=== PATIENT | male | born 1985 | race Caucasian/White ===

== ENCOUNTER 2019-02-13 21:02 | Emergency (ER) | payer MEDICAID ==
[~2019-02-13] VITALS: Ht 157.5 cm; Wt 52.0 kg
--- NOTE | 2019-02-13 21:24 | NUR ---
OJ GIVEN IN TRIAGE
--- NOTE | 2019-02-13 21:49 | NUR ---
CALLED FOR ROOM, NO ANSWER CURRENTLY, NEXT PT ROOMED
[2019-02-13 22:20] VITALS: BP 110/74
--- NOTE | 2019-02-13 22:21 | NUR ---
FIRST CONTACT WITH PT. PT BIB [facility] WITH REPORTED LO BS DEPRESSED AND NEEDS DETOX. PT'S AOX4. RESPS EVEN AND UNLABORED. PT C/O FLANK PAIN. BP/SPO2 MONITORS IN PLACE. CALL LIGHT WITHIN REACH.
--- NOTE | 2019-02-13 22:29 | NUR ---
BS 260 AT THIS TIME.
[2019-02-13 22:44] LABS: ALANINE AMINOTRANSFERASE 38 U/L (12-78); ALBUMIN 3.4 g/dL (3.4-5.0); ANION GAP 8 mmol/L (5-15); CALCIUM 8.9 mg/dL (8.5-10.1); CHLORIDE 107 mmol/L (98-107); CREATININE 0.97 mg/dL (0.7-1.3)
[2019-02-13 22:46] LABS: BASOPHILS # (AUTO) 0.05 x10^3/uL (0-0.1); BASOPHILS % (AUTO) 1 % (0-1); EOSINOPHILS # (AUTO) 0.13 x10^3/uL (0-0.4); EOSINOPHILS % (AUTO) 2 % (1-7); LYMPHOCYTES # (AUTO) 2.18 x10^3/uL (1-3.4); LYMPHOCYTES % (AUTO) 37 % (22-44); MD NO; MEAN CORPUSCULAR HGB CONC 33.3 g/dL (33.2-36.2); MEAN CORPUSCULAR VOLUME 92.9 fL (81-97); MEAN PLATELET VOLUME 8.9 fL (7.4-10.4); MONOCYTES # (AUTO) 0.47 x10^3/uL (0.2-0.8); MONOCYTES % (AUTO) 8 % (2-9); NEUTROPHILS # (AUTO) 3.08 x10^3/uL (1.8-6.8); NEUTROPHILS % (AUTO) 52 % (42-75); PLATELET COUNT 280 x10^3/uL (130-400); RED BLOOD COUNT 4.66 x10^6/uL (4.38-5.82)
[2019-02-13 22:47] LABS: ALKALINE PHOSPHATASE 66 U/L (45-117); BILIRUBIN,TOTAL 0.5 mg/dL (0.2-1.0); TOTAL PROTEIN 6.7 g/dL (6.4-8.2)
[2019-02-13 23:13] LABS: MICROSCOPIC AUTO
[2019-02-13 23:15] LABS: CULTURE INDICATED? NO
--- NOTE | 2019-02-14 00:10 | NUR ---
Patient given discharge instructions and they have confirmed that they understand the instructions. Patient ambulatory with steady gait. taxi voucher [place] at [place].
== END 2019-02-14 00:11 | disposition home or self-care (01) ==
LOC: ED 02-14 00:05
DX: E11.649 Type 2 diabetes mellitus with hypoglycemia without coma (principal); R30.0 Dysuria; F17.210 Nicotine dependence, cigarettes, uncomplicated; F15.929 Other stimulant use, unspecified with intoxication, unspecified
CPT/HCPCS: 36415; 80053; 81001; 82962; 85025; 99283

== ENCOUNTER 2020-01-21 07:43 | Emergency (ER) | payer MEDICAID ==
[~2020-01-21] VITALS: Ht 157.5 cm; Wt 52.6 kg
[2020-01-21 08:52] LABS: BASOPHILS # (AUTO) 0.06 x10^3/uL (0-0.1); BASOPHILS % (AUTO) 1 % (0-1); EOSINOPHILS # (AUTO) 0.01 x10^3/uL (0-0.4); EOSINOPHILS % (AUTO) 0 % (1-7); LYMPHOCYTES # (AUTO) 0.98 x10^3/uL (1-3.4); LYMPHOCYTES % (AUTO) 12 % (22-44); MD NO; MEAN CORPUSCULAR HEMOGLOBIN 30.6 pg (27.5-34.5); MEAN CORPUSCULAR HGB CONC 33.2 g/dL (33.2-36.2); MEAN PLATELET VOLUME 9.2 fL (7.4-10.4); MONOCYTES # (AUTO) 0.36 x10^3/uL (0.2-0.8); MONOCYTES % (AUTO) 5 % (2-9); NEUTROPHILS # (AUTO) 6.59 x10^3/uL (1.8-6.8); NEUTROPHILS % (AUTO) 82 % (42-75); PLATELET COUNT 250 x10^3/uL (130-400); RED BLOOD COUNT 5.41 x10^6/uL (4.38-5.82); RED CELL DISTRIBUTION WIDTH 13.3 % (9.4-14.8)
[2020-01-21 09:03] LABS: ALBUMIN 3.8 g/dL (3.4-5.0); ANION GAP 13 mmol/L (5-15); CALCIUM 9.7 mg/dL (8.5-10.1); CHLORIDE 101 mmol/L (98-107)
[2020-01-21 09:06] LABS: ALANINE AMINOTRANSFERASE 27 U/L (12-78); ALKALINE PHOSPHATASE 87 U/L (45-117); BILIRUBIN,TOTAL 0.5 mg/dL (0.2-1.0); CREATININE 1.67 mg/dL (0.7-1.3); TOTAL PROTEIN 7.8 g/dL (6.4-8.2)
--- NOTE | 2020-01-21 09:43 | NUR ---
MEDICAL POLICY SPECIALIST: PT TO ROOM FROM LOBBY
[2020-01-21] MEDS ORDERED: SODIUM CHLORIDE FLUSH 10ML SYR IVF ONE (10:30)
[2020-01-21] MEDS ORDERED: SODIUM CHLORIDE 0.9% 1,000ML IVBOLUS ONE (10:30)
--- NOTE | 2020-01-21 10:31 | NUR ---
PT RESTING IN BED, IV STARTED PER ORDERS. PT PLACED ON MONITORS, VSS. UA COLLECTED, SENT TO LAB. CONT TO MONITOR.
[2020-01-21 11:04] LABS: MICROSCOPIC AUTO
--- NOTE | 2020-01-21 11:44 | NUR ---
PT D/C'D PER ERMD ORDERS. STEADY GAIT UPON D/C.
[2020-01-21 11:45] VITALS: BP 141/67
== END 2020-01-21 11:46 | disposition home or self-care (01) ==
LOC: ED 09:58
DX: K59.00 Constipation, unspecified (principal); E10.65 Type 1 diabetes mellitus with hyperglycemia; R10.32 Left lower quadrant pain; R50.9 Fever, unspecified; R19.7 Diarrhea, unspecified
CPT/HCPCS: 36415; 74021; 76700; 80053; 81001; 83690; 85025; 96360; 99285; J7030

== ENCOUNTER 2020-02-03 06:31 | Inpatient (IN) | payer MEDICAID ==
[~2020-02-03] VITALS: Ht 157.5 cm; Wt 53.1 kg
--- NOTE | 2020-02-03 06:35 | NUR ---
CALLED FOR TRIAGE. PT NOT IN LOBBY
[2020-02-03] MEDS ORDERED: SODIUM CHLORIDE 0.9% 1,000ML IVBOLUS ONE ×3 (07:00→11:00)
--- NOTE | 2020-02-03 07:10 | NUR ---
PT CAME IN CO OF HIGH BLOOD SUGAR, SORE THROAT, AND "FEELING NOT RIGHT". PT REPORTS THAT STREP THROAT HAS BEEN GOING AROUND HIS HOUSE. LABS DRAWN. IV FLUIDS INFUSING. 2 BLANKETS PROVIDED.
[2020-02-03 07:11] LABS: BASOPHILS # (AUTO) 0.05 x10^3/uL (0-0.1); BASOPHILS % (AUTO) 1 % (0-1); EOSINOPHILS # (AUTO) 0.11 x10^3/uL (0-0.4); EOSINOPHILS % (AUTO) 2 % (1-7); LYMPHOCYTES # (AUTO) 2.05 x10^3/uL (1-3.4); LYMPHOCYTES % (AUTO) 28 % (22-44); MD NO; MEAN CORPUSCULAR HEMOGLOBIN 30.3 pg (27.5-34.5); MEAN CORPUSCULAR HGB CONC 32.9 g/dL (33.2-36.2); MEAN CORPUSCULAR VOLUME 92.1 fL (81-97); MONOCYTES # (AUTO) 0.43 x10^3/uL (0.2-0.8); MONOCYTES % (AUTO) 6 % (2-9); NEUTROPHILS # (AUTO) 4.65 x10^3/uL (1.8-6.8); NEUTROPHILS % (AUTO) 64 % (42-75); PLATELET COUNT 259 x10^3/uL (130-400); RED BLOOD COUNT 5.06 x10^6/uL (4.38-5.82); RED CELL DISTRIBUTION WIDTH 13.4 % (9.4-14.8)
[2020-02-03 07:16] LABS: PH, VENOUS 7.293 pH (7.320-7.420)
[2020-02-03 07:26] LABS: ALANINE AMINOTRANSFERASE 19 U/L (12-78); ALBUMIN 3.5 g/dL (3.4-5.0); ANION GAP 18 mmol/L (5-15); CHLORIDE 98 mmol/L (98-107); CREATININE 1.35 mg/dL (0.7-1.3)
[2020-02-03 07:28] LABS: ALKALINE PHOSPHATASE 76 U/L (45-117); BILIRUBIN,TOTAL 0.6 mg/dL (0.2-1.0); TOTAL PROTEIN 7.5 g/dL (6.4-8.2)
[2020-02-03 08:01] LABS: ACETONE, SERUM Large (80mg/dL) (Negative)
[2020-02-03] MEDS ORDERED: INSULIN SINGLE DOSE, ER ONE (08:20)
[2020-02-03] MEDS ORDERED: INSULIN REGULAR 100 UNITS/ML, 3ML VIAL IVPush ONE (08:30)
--- NOTE | 2020-02-03 08:33 | NUR ---
PT TO BE ADMITTED. EDUCATED ON PLAN OF CARE. CALLED HIS EMPLOYER AND [employer] FOR PER HIS WISHES Addendum: 02/03/20 at 0835 by [facility] HE LIVES AND WORKS WITH THE [facility] [employer]. [phone]
[2020-02-03] MEDS ORDERED: LANTUS (08:36)
[2020-02-03 09:03] LABS: MICROSCOPIC NOT IND
--- NOTE | 2020-02-03 09:40 | NUR ---
PT RESTING IN [facility]. VSS. NAD
[2020-02-03 09:53] LABS: CALCIUM 8.1 mg/dL (8.5-10.1); CREATININE 1.32 mg/dL (0.7-1.3)
[2020-02-03 10:13] LABS: ANION GAP 15 mmol/L (5-15); CHLORIDE 108 mmol/L (98-107)
[2020-02-03] MEDS: D5%-0.45NACL+KCL 20MEQ 1,000 ML IV SCH ×2 (10:38→16:06)
[2020-02-03] MEDS ORDERED: REGULAR INSULIN 100 UNITS in SODIUM CHLORIDE 0.9% 99 ML IV PRN (10:38)
--- NOTE | 2020-02-03 10:39 | NUR ---
THROUGHPUT: PT DENIED TRANSFER BY [facility] ([facility]) & [facility] (SUNDAY), [facility] FORM FAXED & PLACED IN FOLDER WITH FAX CONFIRMATION, EMAIL SENT TO [facility].
[2020-02-03] MEDS ORDERED: GLUCAGON 1 MG IM PRN (11:00)
[2020-02-03] MEDS ORDERED: DEXTROSE 50%, 50ML SYRINGE IVPush PRN (11:00)
[2020-02-03] MEDS ORDERED: DEXTROSE 4 GM TAB.CHEW PO PRN (11:00)
[2020-02-03] MEDS ORDERED: ONDANSETRON 2MG/ML, 2ML IVPush PRN (11:00)
[2020-02-03] MEDS: SODIUM CHLORIDE 0.9% 1,000 ML IV SCH ×3 (12:30→20:38)
[2020-02-03] MEDS: ENOXAPARIN 40 MG/0.4 ML SQ SCH (12:32)
[2020-02-03 12:33] VITALS: BP 100/70
[2020-02-03] MEDS ORDERED: ARIP20TA10 PO (13:13)
[2020-02-03] MEDS ORDERED: DIVA-61 PO (13:13)
[2020-02-03] MEDS ORDERED: OMEP-110 PO (13:13)
[2020-02-03] MEDS ORDERED: INSU100I11 SQ-INSULIN (13:13)
[2020-02-03] MEDS ORDERED: EMPA1TAB3 PO (13:13)
[2020-02-03] MEDS ORDERED: INSU100I13 SQ-INSULIN (13:13)
[2020-02-03] MEDS ORDERED: CALCIUM CARBONATE 500 MG TAB.CHEW ONE (14:10)
[2020-02-03] MEDS: CALCIUM CARBONATE 500 MG TAB.CHEW PO SCH ×2 (14:13→20:09)
[2020-02-03 14:16] LABS: ANION GAP 17 mmol/L (5-15); CALCIUM 8.1 mg/dL (8.5-10.1); CHLORIDE 107 mmol/L (98-107); CREATININE 1.09 mg/dL (0.7-1.3)
[2020-02-03 15:40] LABS: MICROSCOPIC NOT IND
[2020-02-03 18:19] LABS: ANION GAP 8 mmol/L (5-15); CALCIUM 8.1 mg/dL (8.5-10.1); CHLORIDE 111 mmol/L (98-107); CREATININE 1.06 mg/dL (0.7-1.3)
[2020-02-03] MEDS: ARIPIPRAZOLE 10 MG TABLET PO SCH (20:10)
[2020-02-03] MEDS: DIVALPROEX 500 MG TABLET.DR PO SCH (20:10)
[2020-02-03] MEDS: SODIUM CHLORIDE FLUSH 10ML SYR IVF SCH (21:00)
[2020-02-03 22:37] LABS: ANION GAP 10 mmol/L (5-15); CALCIUM 7.8 mg/dL (8.5-10.1); CHLORIDE 111 mmol/L (98-107); CREATININE 0.96 mg/dL (0.7-1.3)
[2020-02-04] MEDS: D5%-0.45NACL+KCL 20MEQ 1,000 ML IV SCH ×3 (00:28→18:38)
[2020-02-04] MEDS: SODIUM CHLORIDE 0.9% 1,000 ML IV SCH ×4 (01:38→22:03)
[2020-02-04 02:38] LABS: ALBUMIN 2.5 g/dL (3.4-5.0); ANION GAP 6 mmol/L (5-15); CALCIUM 7.4 mg/dL (8.5-10.1); CHLORIDE 113 mmol/L (98-107)
[2020-02-04 02:41] LABS: BASOPHILS # (AUTO) 0.04 x10^3/uL (0-0.1); BASOPHILS % (AUTO) 1 % (0-1); EOSINOPHILS # (AUTO) 0.12 x10^3/uL (0-0.4); EOSINOPHILS % (AUTO) 2 % (1-7); LYMPHOCYTES # (AUTO) 2.56 x10^3/uL (1-3.4); LYMPHOCYTES % (AUTO) 44 % (22-44); MD NO; MEAN CORPUSCULAR HEMOGLOBIN 30.8 pg (27.5-34.5); MEAN CORPUSCULAR HGB CONC 33.9 g/dL (33.2-36.2); MEAN CORPUSCULAR VOLUME 90.7 fL (81-97); MEAN PLATELET VOLUME 9.4 fL (7.4-10.4); MONOCYTES # (AUTO) 0.45 x10^3/uL (0.2-0.8); MONOCYTES % (AUTO) 8 % (2-9); NEUTROPHILS # (AUTO) 2.63 x10^3/uL (1.8-6.8); NEUTROPHILS % (AUTO) 45 % (42-75); PLATELET COUNT 240 x10^3/uL (130-400); RED BLOOD COUNT 4.33 x10^6/uL (4.38-5.82); RED CELL DISTRIBUTION WIDTH 13.4 % (9.4-14.8)
[2020-02-04 02:47] LABS: ALANINE AMINOTRANSFERASE 14 U/L (12-78); ALKALINE PHOSPHATASE 56 U/L (45-117); BILIRUBIN,TOTAL 0.4 mg/dL (0.2-1.0); CHOL/HDL RATIO 3.2; CHOLESTEROL, TOTAL 176 mg/dL (140-239); CREATININE 0.92 mg/dL (0.7-1.3); HDL CHOL % 31 % (26-37); HDL CHOLESTEROL (DIRECT) 55 mg/dL (40-60); LDL CHOLESTEROL,CALCULATED 103 mg/dL (54-169); LDL/HDL RATIO 1.9 (0.5-3.0); TOTAL PROTEIN 5.6 g/dL (6.4-8.2); TRIGLYCERIDES 89 mg/dL (50-200); VLDL CHOLESTEROL 18 mg/dL (0-25)
[2020-02-04 04:00] VITALS: BP 104/61
[2020-02-04] MEDS ORDERED: MAGNESIUM SULFATE/D5W 100 ML IV ONE (04:30)
[2020-02-04] MEDS: CALCIUM CARBONATE 500 MG TAB.CHEW PO SCH ×4 (05:15→20:53)
[2020-02-04] MEDS ORDERED: MAGNESIUM SULFATE PMX 2GM/50ML 50 ML IV ONE (07:00)
[2020-02-04] MEDS: SODIUM CHLORIDE FLUSH 10ML SYR IVF SCH ×3 (07:48→20:55)
[2020-02-04] MEDS: OMEPRAZOLE 20 MG CAPSULE.DR PO SCH (07:53)
[2020-02-04 08:55] LABS: ANION GAP 4 mmol/L (5-15); CALCIUM 8.1 mg/dL (8.5-10.1); CHLORIDE 112 mmol/L (98-107); CREATININE 0.91 mg/dL (0.7-1.3)
[2020-02-04] MEDS ORDERED: INSULIN GLARGINE 100 UNITS/ML, PEN ONE (10:55)
[2020-02-04] MEDS: INSULIN LISPRO 100 UNITS/ML, PEN SQ-INSULIN SCH ×3 (11:00→20:54)
[2020-02-04] MEDS ORDERED: INSULIN GLARGINE 100 UNITS/ML, PEN SQ-INSULIN ONE (11:00)
[2020-02-04] MEDS ORDERED: DEXTROSE 50%, 50ML SYRINGE IVPush PRN (11:00)
[2020-02-04] MEDS ORDERED: GLUCAGON 1 MG IM PRN (11:00)
[2020-02-04] MEDS ORDERED: DEXTROSE 4 GM TAB.CHEW PO PRN (11:00)
[2020-02-04] MEDS: POTASSIUM ACID PHOSPHATE 500 MG TABLET.SOL PO SCH ×3 (11:02→22:03)
[2020-02-04] MEDS ORDERED: POTASSIUM ACID PHOSPHATE 500 MG TABLET.SOL ONE (11:02)
[2020-02-04] MEDS: ENOXAPARIN 40 MG/0.4 ML SQ SCH (11:02)
[2020-02-04 19:06] VITALS: BP 106/74
[2020-02-04] MEDS: INSULIN GLARGINE 100 UNITS/ML, PEN SQ-INSULIN SCH (20:54)
[2020-02-04] MEDS: DIVALPROEX 500 MG TABLET.DR PO SCH (20:54)
[2020-02-04] MEDS: ARIPIPRAZOLE 10 MG TABLET PO SCH (20:54)
[2020-02-05 01:19] VITALS: BP 117/70
[2020-02-05] MEDS: D5%-0.45NACL+KCL 20MEQ 1,000 ML IV SCH (02:38)
[2020-02-05 05:23] LABS: BASOPHILS # (AUTO) 0.03 x10^3/uL (0-0.1); BASOPHILS % (AUTO) 1 % (0-1); EOSINOPHILS # (AUTO) 0.08 x10^3/uL (0-0.4); EOSINOPHILS % (AUTO) 2 % (1-7); LYMPHOCYTES # (AUTO) 1.38 x10^3/uL (1-3.4); LYMPHOCYTES % (AUTO) 26 % (22-44); MD NO; MEAN CORPUSCULAR HEMOGLOBIN 30.9 pg (27.5-34.5); MEAN CORPUSCULAR HGB CONC 33.7 g/dL (33.2-36.2); MEAN CORPUSCULAR VOLUME 91.7 fL (81-97); MEAN PLATELET VOLUME 9.8 fL (7.4-10.4); MONOCYTES # (AUTO) 0.51 x10^3/uL (0.2-0.8); MONOCYTES % (AUTO) 10 % (2-9); NEUTROPHILS # (AUTO) 3.25 x10^3/uL (1.8-6.8); NEUTROPHILS % (AUTO) 62 % (42-75); PLATELET COUNT 221 x10^3/uL (130-400); RED BLOOD COUNT 4.49 x10^6/uL (4.38-5.82); RED CELL DISTRIBUTION WIDTH 13.6 % (9.4-14.8)
[2020-02-05] MEDS: CALCIUM CARBONATE 500 MG TAB.CHEW PO SCH ×4 (05:28→21:07)
[2020-02-05] MEDS: POTASSIUM ACID PHOSPHATE 500 MG TABLET.SOL PO SCH (05:28)
[2020-02-05 05:29] LABS: ALBUMIN 2.5 g/dL (3.4-5.0); ANION GAP 6 mmol/L (5-15); CHLORIDE 114 mmol/L (98-107)
[2020-02-05 05:34] LABS: ALANINE AMINOTRANSFERASE 18 U/L (12-78); ALKALINE PHOSPHATASE 59 U/L (45-117); BILIRUBIN,TOTAL 0.4 mg/dL (0.2-1.0); CREATININE 0.61 mg/dL (0.7-1.3); TOTAL PROTEIN 5.6 g/dL (6.4-8.2)
[2020-02-05 06:40] VITALS: BP 110/70
[2020-02-05] MEDS: INSULIN LISPRO 100 UNITS/ML, PEN SQ-INSULIN SCH ×4 (07:00→21:51)
[2020-02-05] MEDS: MAGNESIUM OXIDE 400 MG TABLET PO SCH (08:39)
[2020-02-05] MEDS: OMEPRAZOLE 20 MG CAPSULE.DR PO SCH (08:39)
[2020-02-05] MEDS: INSULIN GLARGINE 100 UNITS/ML, PEN SQ-INSULIN SCH ×2 (08:40→21:51)
[2020-02-05] MEDS: SODIUM CHLORIDE FLUSH 10ML SYR IVF SCH ×3 (08:42→21:08)
[2020-02-05] MEDS: ENOXAPARIN 40 MG/0.4 ML SQ SCH (11:17)
[2020-02-05 12:20] VITALS: BP 107/76
[2020-02-05] MEDS: ACETAMINOPHEN 325 MG TABLET PO PRN (12:39)
[2020-02-05 19:30] VITALS: BP 117/77
[2020-02-05] MEDS: ARIPIPRAZOLE 10 MG TABLET PO SCH (21:07)
[2020-02-05] MEDS: DIVALPROEX 500 MG TABLET.DR PO SCH (21:07)
[2020-02-06 04:17] VITALS: BP 100/61
[2020-02-06] MEDS: ACETAMINOPHEN 325 MG TABLET PO PRN ×2 (04:29→17:23)
[2020-02-06 06:56] VITALS: BP 129/91
[2020-02-06] MEDS: OMEPRAZOLE 20 MG CAPSULE.DR PO SCH (08:22)
[2020-02-06] MEDS: MAGNESIUM OXIDE 400 MG TABLET PO SCH (08:22)
[2020-02-06] MEDS: CALCIUM CARBONATE 500 MG TAB.CHEW PO SCH ×4 (08:23→20:01)
[2020-02-06] MEDS: INSULIN LISPRO 100 UNITS/ML, PEN SQ-INSULIN SCH ×4 (08:23→20:37)
[2020-02-06] MEDS: INSULIN GLARGINE 100 UNITS/ML, PEN SQ-INSULIN SCH ×3 (08:24→23:03)
[2020-02-06] MEDS: SODIUM CHLORIDE FLUSH 10ML SYR IVF SCH ×2 (08:25→21:00)
[2020-02-06] MEDS ORDERED: INSULIN LISPRO 100 UNITS/ML, PEN SQ-INSULIN SCH ×2 (12:00→17:00)
[2020-02-06] MEDS: ENOXAPARIN 40 MG/0.4 ML SQ SCH (12:05)
[2020-02-06 14:21] VITALS: BP 109/73
[2020-02-06 19:57] VITALS: BP 128/89
[2020-02-06] MEDS: ARIPIPRAZOLE 10 MG TABLET PO SCH (20:00)
[2020-02-06] MEDS: DIVALPROEX 500 MG TABLET.DR PO SCH (20:00)
[2020-02-07 02:00] VITALS: BP 110/75
[2020-02-07] MEDS: SODIUM CHLORIDE FLUSH 10ML SYR IVF SCH ×2 (07:04→21:18)
[2020-02-07] MEDS: INSULIN LISPRO 100 UNITS/ML, PEN SQ-INSULIN SCH ×5 (07:07→21:17)
[2020-02-07 07:40] VITALS: BP 107/72
[2020-02-07] MEDS: CALCIUM CARBONATE 500 MG TAB.CHEW PO SCH ×3 (08:00→14:25)
[2020-02-07] MEDS ORDERED: INSULIN LISPRO 100 UNITS/ML, PEN SQ-INSULIN SCH ×3 (08:00→17:00)
[2020-02-07] MEDS: OMEPRAZOLE 20 MG CAPSULE.DR PO SCH (08:05)
[2020-02-07] MEDS: MAGNESIUM OXIDE 400 MG TABLET PO SCH (08:05)
[2020-02-07] MEDS: INSULIN GLARGINE 100 UNITS/ML, PEN SQ-INSULIN SCH ×2 (08:06→21:17)
[2020-02-07 08:51] LABS: ANION GAP 10 mmol/L (5-15); CALCIUM 9.4 mg/dL (8.5-10.1); CHLORIDE 100 mmol/L (98-107); CREATININE 1.23 mg/dL (0.7-1.3)
[2020-02-07] MEDS: LINAGLIPTIN PO SCH (09:00)
[2020-02-07] MEDS: EMPAGLIFLOZIN PO SCH (09:00)
[2020-02-07] MEDS: ENOXAPARIN 40 MG/0.4 ML SQ SCH (11:18)
[2020-02-07] MEDS ORDERED: CALCIUM CARBONATE 500 MG TAB.CHEW PO PRN (14:30)
[2020-02-07 15:32] VITALS: BP 104/70
[2020-02-07 19:42] VITALS: BP 110/76
[2020-02-07] MEDS: DIVALPROEX 500 MG TABLET.DR PO SCH (21:16)
[2020-02-07] MEDS: ARIPIPRAZOLE 10 MG TABLET PO SCH (21:16)
[2020-02-08 02:01] VITALS: BP 114/78
[2020-02-08 02:26] VITALS: BP 114/76
[2020-02-08] MEDS: INSULIN LISPRO 100 UNITS/ML, PEN SQ-INSULIN SCH ×2 (03:08→09:39)
[2020-02-08 06:37] VITALS: BP 107/73
[2020-02-08] MEDS ORDERED: INSULIN LISPRO 100 UNITS/ML, PEN SQ-INSULIN SCH (08:00)
[2020-02-08] MEDS: EMPAGLIFLOZIN PO SCH (09:00)
[2020-02-08] MEDS: LINAGLIPTIN PO SCH (09:00)
[2020-02-08] MEDS: SODIUM CHLORIDE FLUSH 10ML SYR IVF SCH (09:38)
[2020-02-08] MEDS: OMEPRAZOLE 20 MG CAPSULE.DR PO SCH (09:38)
[2020-02-08] MEDS: MAGNESIUM OXIDE 400 MG TABLET PO SCH (09:38)
[2020-02-08] MEDS: INSULIN GLARGINE 100 UNITS/ML, PEN SQ-INSULIN SCH (09:39)
[2020-02-08] MEDS ORDERED: INSU100I13 SQ-INSULIN (10:10)
[2020-02-08] MEDS: ENOXAPARIN 40 MG/0.4 ML SQ SCH (11:00)
== END 2020-02-08 11:11 | disposition home or self-care (01) | DRG 637 ==
LOC: ED 07:19 → EDIP 10:32 → CCU 12:09 → 3N 02-04 13:41 → DCLOUNGE 02-08 11:09
PROVIDERS: ADMIT Internal Medicine; ATTEND Hospitalist
DX: E10.10 Type 1 diabetes mellitus with ketoacidosis without coma (principal); E43 Unspecified severe protein-calorie malnutrition; F19.20 Other psychoactive substance dependence, uncomplicated; R65.10 Systemic inflammatory response syndrome (SIRS) of non-infectious origin without acute organ dysfunction; E86.0 Dehydration; E83.42 Hypomagnesemia; F17.210 Nicotine dependence, cigarettes, uncomplicated; F32.9 Major depressive disorder, single episode, unspecified; G40.909 Epilepsy, unspecified, not intractable, without status epilepticus; Z79.4 Long term (current) use of insulin; Z20.828 Contact with and (suspected) exposure to other viral communicable diseases; Z88.8 Allergy status to other drugs, medicaments and biological substances; F10.20 Alcohol dependence, uncomplicated; Y90.9 Presence of alcohol in blood, level not specified
CPT/HCPCS: 36415; 71045; 80048; 80053; 80061; 81003; 82010; 82803; 82947; 82962; 83036; 83690; 83735; 84100; 84443; 85025; 87081; 87880; 96374; G0378; J1650; J1815; J2405; J3475; J3480; J7030

== ENCOUNTER 2020-02-24 14:13 | Emergency (ER) | payer MEDICAID ==
[~2020-02-24] VITALS: Ht 157.5 cm; Wt 55.0 kg
[~2020-02-24 14:13] MED LIST: ARIP20TA10 PO; DIVA-61 PO; EMPA1TAB3 PO; INSU100I11 SQ-INSULIN; INSU100I13 SQ-INSULIN; LANTUS; OMEP-110 PO
[2020-02-24 14:15] VITALS: BP 116/77
--- NOTE | 2020-02-24 14:16 | NUR ---
NURSING OPERATIONS CALLED FOR SITTER.
--- NOTE | 2020-02-24 14:47 | NUR ---
Pt has 1 bag and backpack locked up and placed in bin #3, pt sts " he has a few cell phones and that he doesnt want security to lock up any of his belongings". Pt changed into gown, socks. Security gate down, urine sent to lab. Pt resting calm and cooperative. Pt told this RN " He wants to be readmitted to [facility] and his plan is to kill himself by running into traffic".
[2020-02-24 15:05] LABS: AMPHETAMINE SCREEN, URINE Negative (Negative); BARBITURATE SCREEN, URINE Negative (Negative); BENZODIAZEPINE SCREEN, URINE Negative (Negative); CANNABINOID SCREEN, URINE Negative (Negative); COCAINE SCREEN, URINE Negative (Negative); METHADONE SCREEN, URINE Negative (Negative); OPIATE SCREEN, URINE Negative (Negative)
[2020-02-24 15:10] LABS: BASOPHILS # (AUTO) 0.08 x10^3/uL (0-0.1); BASOPHILS % (AUTO) 1 % (0-1); EOSINOPHILS # (AUTO) 0.12 x10^3/uL (0-0.4); EOSINOPHILS % (AUTO) 2 % (1-7); LYMPHOCYTES # (AUTO) 1.83 x10^3/uL (1-3.4); LYMPHOCYTES % (AUTO) 24 % (22-44); MD NO; MEAN CORPUSCULAR HEMOGLOBIN 30.5 pg (27.5-34.5); MEAN CORPUSCULAR HGB CONC 33.3 g/dL (33.2-36.2); MEAN CORPUSCULAR VOLUME 91.4 fL (81-97); MEAN PLATELET VOLUME 9.7 fL (7.4-10.4); MONOCYTES # (AUTO) 0.43 x10^3/uL (0.2-0.8); MONOCYTES % (AUTO) 6 % (2-9); NEUTROPHILS # (AUTO) 5.27 x10^3/uL (1.8-6.8); NEUTROPHILS % (AUTO) 68 % (42-75); PLATELET COUNT 267 x10^3/uL (130-400); RED BLOOD COUNT 4.69 x10^6/uL (4.38-5.82); RED CELL DISTRIBUTION WIDTH 13.7 % (9.4-14.8)
[2020-02-24 15:23] LABS: ALANINE AMINOTRANSFERASE 26 U/L (12-78); ALBUMIN 3.3 g/dL (3.4-5.0); ANION GAP 8 mmol/L (5-15); CALCIUM 8.3 mg/dL (8.5-10.1); CHLORIDE 103 mmol/L (98-107); CREATININE 1.23 mg/dL (0.7-1.3)
[2020-02-24 15:25] LABS: ALKALINE PHOSPHATASE 72 U/L (45-117); BILIRUBIN,TOTAL 0.4 mg/dL (0.2-1.0); SALICYLATE LEVEL < 1.7 mg/dL (2.8-20.0); TOTAL PROTEIN 6.9 g/dL (6.4-8.2)
--- NOTE | 2020-02-24 15:50 | NUR ---
PSYCH SELENE AT . Addendum: 02/24/20 at 1601 by EDUARD PSYCH SELENE PINON AT .
--- NOTE | 2020-02-24 16:16 | NUR ---
Pt resting comfortably, no needs expressed, sitter monitoring pt.
--- NOTE | 2020-02-24 16:40 | NUR ---
Pt sitting at EOB gurney awake, calm & cooperative, responds appropriately to staff, no c/o or needs at this time, pt remains in a safe environment, sitter in view.
--- NOTE | 2020-02-24 16:44 | NUR ---
Patient given discharge instructions and cab voucher to [facility] they have confirmed that they understand the instructions. All personal belongings from [facility] returned to Pt. Patient ambulatory with steady gait.
== END 2020-02-24 17:28 | disposition home or self-care (01) ==
LOC: ED 15:37
DX: F33.9 Major depressive disorder, recurrent, unspecified (principal); F10.20 Alcohol dependence, uncomplicated; F11.20 Opioid dependence, uncomplicated; R45.851 Suicidal ideations; E10.9 Type 1 diabetes mellitus without complications; Y90.0 Blood alcohol level of less than 20 mg/100 ml
CPT/HCPCS: 36415; 80053; 80307; 85025; 99283

== ENCOUNTER 2020-05-15 17:41 | Emergency (ER) | payer MEDICAID ==
[~2020-05-15] VITALS: Ht 157.5 cm; Wt 53.4 kg
[2020-05-15 17:53] VITALS: BP 135/79
[2020-05-15 19:05] LABS: BASOPHILS % (AUTO) 1 % (0-1); EOSINOPHILS % (AUTO) 2 % (1-7); LYMPHOCYTES % (AUTO) 14 % (22-44); MEAN CORPUSCULAR HEMOGLOBIN 29.7 pg (27.5-34.5); MEAN CORPUSCULAR HGB CONC 33.9 g/dL (33.2-36.2); MEAN PLATELET VOLUME 9.1 fL (7.4-10.4); MONOCYTES % (AUTO) 7 % (2-9); NEUTROPHILS % (AUTO) 76 % (42-75); PLATELET COUNT 326 x10^3/uL (130-400); RED BLOOD COUNT 4.86 x10^6/uL (4.38-5.82); RED CELL DISTRIBUTION WIDTH 13.8 % (9.4-14.8)
[2020-05-15 19:06] LABS: MD NO
[2020-05-15 19:13] LABS: CHLORIDE 101 mmol/L (98-107)
--- NOTE | 2020-05-15 19:13 | NUR ---
pt walked back to room. as
[2020-05-15 19:14] LABS: ALBUMIN 3.2 g/dL (3.4-5.0); ANION GAP 6 mmol/L (5-15); CALCIUM 8.8 mg/dL (8.5-10.1); CREATININE 0.98 mg/dL (0.7-1.3)
--- NOTE | 2020-05-15 19:19 | NUR ---
labs/swabs pending, xr clear. as
--- NOTE | 2020-05-15 20:10 | NUR ---
pt redressed himself and took off all monitoring. sleeping. as
== END 2020-05-15 21:14 | disposition home or self-care (01) ==
LOC: ED 19:41
DX: B34.9 Viral infection, unspecified (principal); R00.0 Tachycardia, unspecified; E11.9 Type 2 diabetes mellitus without complications; F17.200 Nicotine dependence, unspecified, uncomplicated
CPT/HCPCS: 36415; 71046; 80048; 82040; 82962; 85025; 87081; 87880; 99284

== ENCOUNTER 2020-05-17 18:01 | Emergency (ER) | payer MEDICAID ==
[~2020-05-17] VITALS: Ht 157.5 cm; Wt 52.0 kg
--- NOTE | 2020-05-17 19:39 | NUR ---
pt called to room from lobby
--- NOTE | 2020-05-17 19:55 | NUR ---
DR ALVAREZ TO ROOM, PT REFUSED COVID AND FLU SWAB. PT NON COMPLIANT WITH ANSWERING QUESTIONS AND WEARING MASK, PT GIVING SHORT ANSWERS ABOUT ALL ASSESSMENT PARTS AND SI. APPEARS TO BE UNDER INFLUENCE OF METH AND ETOH. PT STATES HE USES METH. PT ANSWERS "YES" TO EVERY QUESTION INCLUDING SI CLINICAL SCREEN AND STATES "I HAVE A HISTORY OF EVERYTHING". PT GAVE SAME ANSWER OF "EVERY DAY" DURING SI ASSESSMENT.
[2020-05-17] MEDS ORDERED: ALBUTEROL HFA 90 MCG/SPRAY INH ONE (20:00)
[2020-05-17] MEDS ORDERED: SODIUM CHLORIDE 0.9% 1,000ML IVBOLUS ONE ×2 (20:00→21:00)
[2020-05-17 20:37] LABS: BASOPHILS % (AUTO) 1 % (0-1); EOSINOPHILS % (AUTO) 3 % (1-7); LYMPHOCYTES % (AUTO) 15 % (22-44); MEAN CORPUSCULAR HEMOGLOBIN 29.8 pg (27.5-34.5); MEAN CORPUSCULAR HGB CONC 33.7 g/dL (33.2-36.2); MEAN PLATELET VOLUME 8.4 fL (7.4-10.4); MONOCYTES % (AUTO) 7 % (2-9); NEUTROPHILS % (AUTO) 74 % (42-75); PLATELET COUNT 363 x10^3/uL (130-400); RED BLOOD COUNT 4.72 x10^6/uL (4.38-5.82); RED CELL DISTRIBUTION WIDTH 13.8 % (9.4-14.8)
[2020-05-17 20:43] LABS: MD NO
--- NOTE | 2020-05-17 20:43 | NUR ---
REFUSED IV, AWARE
[2020-05-17 20:48] LABS: ALANINE AMINOTRANSFERASE 20 U/L (12-78); ANION GAP 5 mmol/L (5-15); CALCIUM 8.9 mg/dL (8.5-10.1); CHLORIDE 104 mmol/L (98-107)
[2020-05-17 20:49] LABS: PH, VENOUS 7.289 pH (7.320-7.420)
[2020-05-17 20:50] LABS: ALKALINE PHOSPHATASE 125 U/L (45-117); BILIRUBIN,TOTAL 0.4 mg/dL (0.2-1.0); CREATININE 1.05 mg/dL (0.7-1.3)
[2020-05-17 20:53] LABS: ACETONE, SERUM Negative (Negative)
--- NOTE | 2020-05-17 21:42 | NUR ---
MD REQUESTED RN PLACE IV FOR ACIODOSIS. PT EDUCATED AND LET RN START IV FOR NS BOLUS.
--- NOTE | 2020-05-17 22:21 | NUR ---
IV FLUIDS RUNNING. PT RESTING CALMLY IN ROOM WHEN BY SELF. WHEN RN ENTERS ROOM PTS BREATHING BECOMES MORE RAPID. VSS.
[2020-05-17 22:54] VITALS: BP 109/64
== END 2020-05-17 23:10 | disposition home or self-care (01) ==
LOC: ED 22:37
DX: J44.1 Chronic obstructive pulmonary disease with (acute) exacerbation (principal); B34.9 Viral infection, unspecified; E87.4 Mixed disorder of acid-base balance; E86.9 Volume depletion, unspecified; E86.0 Dehydration; E11.9 Type 2 diabetes mellitus without complications
CPT/HCPCS: 36415; 71045; 80053; 82010; 82803; 83605; 84145; 85025; 99284; J7030; J7512

== ENCOUNTER 2020-06-13 10:09 | Emergency (ER) | payer MEDICAID ==
[~2020-06-13] VITALS: Ht 157.5 cm; Wt 51.8 kg
[2020-06-13 11:11] LABS: FIO2 ROOM AIR %; PH, VENOUS 7.325 pH (7.320-7.420)
[2020-06-13 11:14] LABS: BASOPHILS % (AUTO) 1 % (0-1); EOSINOPHILS % (AUTO) 2 % (1-7); LYMPHOCYTES % (AUTO) 16 % (22-44); MEAN CORPUSCULAR HEMOGLOBIN 30.1 pg (27.5-34.5); MEAN CORPUSCULAR HGB CONC 33.9 g/dL (33.2-36.2); MONOCYTES % (AUTO) 4 % (2-9); NEUTROPHILS % (AUTO) 76 % (42-75); PLATELET COUNT 343 x10^3/uL (130-400); RED BLOOD COUNT 4.57 x10^6/uL (4.38-5.82); RED CELL DISTRIBUTION WIDTH 14.7 % (9.4-14.8)
[2020-06-13 11:22] LABS: MD NO
[2020-06-13 11:25] LABS: ANION GAP 10 mmol/L (5-15); CALCIUM 8.3 mg/dL (8.5-10.1); CHLORIDE 100 mmol/L (98-107)
[2020-06-13 11:30] LABS: ALANINE AMINOTRANSFERASE 39 U/L (12-78); ALKALINE PHOSPHATASE 116 U/L (45-117); BILIRUBIN,TOTAL 0.5 mg/dL (0.2-1.0); CREATININE 1.25 mg/dL (0.7-1.3); TOTAL PROTEIN 6.7 g/dL (6.4-8.2)
--- NOTE | 2020-06-13 11:37 | NUR ---
patient arrives with all over rash of small round scabs and n/v/d abdominal pain for three days and diabetes type 1/burping
[2020-06-13 11:50] LABS: ACETONE, SERUM Negative (Negative)
[2020-06-13 11:53] LABS: MICROSCOPIC AUTO
[2020-06-13] MEDS ORDERED: MORPHINE SULFATE 4 MG/ML, 1ML IVPush PRN (12:00)
[2020-06-13] MEDS ORDERED: SODIUM CHLORIDE 0.9% 1,000ML IVBOLUS ONE (12:00)
[2020-06-13] MEDS ORDERED: INSULIN REGULAR 100 UNITS/ML, 3ML VIAL IVPush ONE (12:00)
[2020-06-13] MEDS ORDERED: ONDANSETRON 2MG/ML, 2ML IVPush ONE (12:00)
[2020-06-13] MEDS ORDERED: SODIUM CHLORIDE FLUSH 10ML SYR IVF ONE (12:00)
[2020-06-13] MEDS ORDERED: MORPHINE SULFATE 4 MG/ML, 1ML ONE (12:01)
[2020-06-13] MEDS ORDERED: INSULIN SINGLE DOSE, ER ONE (12:02)
[2020-06-13] MEDS ORDERED: ONDANSETRON 2MG/ML, 2ML ONE (12:02)
--- NOTE | 2020-06-13 13:05 | NUR ---
PATIENT RETURNED FROM RADIOLOGY. PAIN IMPROVED A 5 OF 10
--- NOTE | 2020-06-13 13:38 | NUR ---
fsbs 184
[2020-06-13 13:54] VITALS: BP 122/78
--- NOTE | 2020-06-13 13:54 | NUR ---
patient discharge instructions reviewed. shows understanding.
--- NOTE | 2020-06-13 14:16 | NUR ---
patient discharge reviewed.
[2020-06-13] MEDS ORDERED: OMNIPAQUE 350 MG/ML, 100ML BOTTLE ONE (14:47)
== END 2020-06-13 14:22 | disposition home or self-care (01) ==
LOC: ED 13:50
DX: K52.9 Noninfective gastroenteritis and colitis, unspecified (principal); E11.65 Type 2 diabetes mellitus with hyperglycemia; R11.2 Nausea with vomiting, unspecified; J44.9 Chronic obstructive pulmonary disease, unspecified
CPT/HCPCS: 36415; 74177; 80053; 81001; 82010; 82803; 82962; 83690; 85025; 96361; 96374; 96375; 99285; J1815; J2405; J7030; Q9967; 99284

== ENCOUNTER 2020-07-18 18:18 | Inpatient (IN) | payer MEDICAID ==
[~2020-07-18] VITALS: Ht 157.5 cm; Wt 54.6 kg
--- NOTE | 2020-07-18 18:28 | NUR ---
DR ALVAREZ AT BS. PT STATES HE HAD A THROAT ABCESS PROCEDURE DONE A WEEK AGO AT [facility]. "THEY WERE SUPPOSED TO PUT ME IN A RETIREMENT, BUT ALL THEY DID WAS GIVE ME ANTIBIOTICS AND DISCHARGE ME". C/O HIGH BLOOD SUGAR, ABD PAIN, PAIN W/ URINATION. UMBILICAL HERNIA PROTRUSION NOTED
--- NOTE | 2020-07-18 18:35 | NUR ---
750ML PALE YELLOW URINE IN URINAL
[2020-07-18] MEDS ORDERED: ONDANSETRON 2MG/ML, 2ML ONE (18:44)
[2020-07-18] MEDS ORDERED: MORPHINE SULFATE 4 MG/ML, 1ML ONE (18:45)
[2020-07-18 18:54] LABS: BASOPHILS % (AUTO) 1 % (0-1); EOSINOPHILS % (AUTO) 0 % (1-7); LYMPHOCYTES % (AUTO) 9 % (22-44); MEAN CORPUSCULAR HGB CONC 33.2 g/dL (33.2-36.2); MEAN PLATELET VOLUME 8.3 fL (7.4-10.4); MONOCYTES % (AUTO) 4 % (2-9); NEUTROPHILS % (AUTO) 86 % (42-75); PLATELET COUNT 582 x10^3/uL (130-400); RED BLOOD COUNT 4.62 x10^6/uL (4.38-5.82); RED CELL DISTRIBUTION WIDTH 15.6 % (9.4-14.8)
--- NOTE | 2020-07-18 18:55 | NUR ---
NS BOLUS HUNG. IV SITE PATENT. ZOFRAN AND MORPHINE GIVEN PER EMAR. BEAR WARMER PROVIDED. SIDE RAILS UP X2, CALL LIGHT W/IN REACH
[2020-07-18 18:58] LABS: MD NO
[2020-07-18] MEDS ORDERED: MORPHINE SULFATE 4 MG/ML, 1ML IVPush PRN (19:00)
[2020-07-18] MEDS ORDERED: SODIUM CHLORIDE FLUSH 10ML SYR IVF ONE (19:00)
[2020-07-18] MEDS ORDERED: SODIUM CHLORIDE 0.9% 1,000ML IVBOLUS ONE (19:00)
[2020-07-18] MEDS ORDERED: ONDANSETRON 2MG/ML, 2ML IVPush ONE (19:00)
[2020-07-18 19:07] LABS: ALANINE AMINOTRANSFERASE 92 U/L (12-78); ALBUMIN 2.8 g/dL (3.4-5.0); ANION GAP 9 mmol/L (5-15); CALCIUM 9.2 mg/dL (8.5-10.1); CHLORIDE 96 mmol/L (98-107); CREATININE 1.23 mg/dL (0.7-1.3)
[2020-07-18 19:09] LABS: ALKALINE PHOSPHATASE 205 U/L (45-117); BILIRUBIN,TOTAL 0.5 mg/dL (0.2-1.0); TOTAL PROTEIN 7.5 g/dL (6.4-8.2)
[2020-07-18] MEDS ORDERED: INSU100I11 SQ (19:19)
[2020-07-18] MEDS ORDERED: HYDR-3237 PO (19:19)
[2020-07-18] MEDS ORDERED: CHLO473M PO (19:19)
[2020-07-18 19:27] LABS: MICROSCOPIC NOT IND
--- NOTE | 2020-07-18 19:44 | NUR ---
PT RQUESTING GI COCKTAIL; WILL NOTIFY ERP. NS INFUSING. PT TO CT PER SHANNA
[2020-07-18] MEDS ORDERED: OMNIPAQUE 350 MG/ML, 100ML BOTTLE ONE (20:07)
[2020-07-18 20:20] VITALS: BP 117/76
--- NOTE | 2020-07-18 20:20 | NUR ---
850ML PALE YELLOW URINE IN URINAL
--- NOTE | 2020-07-18 20:29 | NUR ---
DR ALVAREZ AT TO DISCUSS POC.
[2020-07-18] MEDS ORDERED: INSULIN REGULAR 100 UNITS/ML, 3ML VIAL IVPush ONE (20:30)
--- NOTE | 2020-07-18 20:37 | NUR ---
ICE CHIPS PROVIDED
[2020-07-18] MEDS ORDERED: INSULIN SINGLE DOSE, ER ONE (20:40)
--- NOTE | 2020-07-18 20:44 | NUR ---
INSULIN GIVEN PER EMAR
[2020-07-18] MEDS ORDERED: MAALOX/HYOSCYAMINE/LIDOCAINE 45 ML BTL PO ONE (21:00)
[2020-07-18] MEDS ORDERED: MAALOX/HYOSCYAMINE/LIDOCAINE 45 ML BTL ONE (21:13)
--- NOTE | 2020-07-18 21:16 | NUR ---
PT VOIDED 800ML URINE INTO URINAL. WILL CONSULT DR ALVAREZ RE: DU ORDER. PT STATES "I'M GOING TO NEED A LOT MORE INSULIN" "I'M GOING TO NEED A LONG ACTING ONE WELL" "IT'S BEEN ABOUT 3 DAYS SINCE I'VE USED IT".
--- NOTE | 2020-07-18 21:18 | NUR ---
GI COCKTAIL GIVEN PER EMAR. PT INSTRUCTED NOT TO DRINK THE CUP OF WATER THAT HE FILLE AT ROOM SINK; UNDERSTANDING VERBALIZED.
--- NOTE | 2020-07-18 21:20 | NUR ---
HOSPITALIST AT BS. VO FROM DR ALVAREZ: HOLD FLORIAN, FOR NOW; DO BLADDER SCAN
[2020-07-18] MEDS ORDERED: LACTATED RINGERS 1,000 ML IV ONE (22:00)
[2020-07-18] MEDS ORDERED: ENALAPRILAT 1.25 MG/ML, 2ML IVPush PRN (22:00)
[2020-07-18] MEDS ORDERED: MELATONIN 5 MG TABLET PO PRN (22:00)
[2020-07-18] MEDS ORDERED: ACETAMINOPHEN 325 MG TABLET PO PRN (22:00)
[2020-07-18] MEDS ORDERED: ONDANSETRON 2MG/ML, 2ML IVPush PRN (22:00)
--- NOTE | 2020-07-18 22:02 | NUR ---
PT REPORT TO WILMA TOMAS FOR ROOM 369
[2020-07-18 22:20] VITALS: BP 117/76
[2020-07-18] MEDS: OMEPRAZOLE 20 MG CAPSULE.DR PO SCH (22:27)
[2020-07-18] MEDS: HYDROcodone/APAP 5/325 TABLET PO PRN (22:27)
[2020-07-18] MEDS: INSULIN GLARGINE 100 UNITS/ML, PEN SQ-INSULIN SCH (22:44)
[2020-07-18] MEDS: INSULIN LISPRO 100 UNITS/ML, PEN SQ-INSULIN SCH (22:44)
[2020-07-18 23:02] LABS: AMPHETAMINE SCREEN, URINE Positive (Negative); BARBITURATE SCREEN, URINE Negative (Negative); BENZODIAZEPINE SCREEN, URINE Negative (Negative); CANNABINOID SCREEN, URINE Negative (Negative); COCAINE SCREEN, URINE Negative (Negative); METHADONE SCREEN, URINE Negative (Negative); OPIATE SCREEN, URINE Negative (Negative)
[2020-07-18] MEDS: LACTATED RINGERS 1,000 ML IV SCH (23:40)
[2020-07-19 03:25] VITALS: BP 128/79
[2020-07-19] MEDS: OMEPRAZOLE 20 MG CAPSULE.DR PO SCH (05:36)
[2020-07-19] MEDS: CHLORHEXIDINE 15 ML UDC MM SCH ×5 (05:37→20:59)
[2020-07-19] MEDS: INSULIN LISPRO 100 UNITS/ML, PEN SQ-INSULIN SCH ×4 (07:00→19:47)
[2020-07-19] MEDS: LACTATED RINGERS 1,000 ML IV SCH ×2 (07:51→16:33)
[2020-07-19] MEDS: INSULIN GLARGINE 100 UNITS/ML, PEN SQ-INSULIN SCH ×3 (07:56→19:47)
[2020-07-19] MEDS ORDERED: DEXTROSE 50%, 50ML SYRINGE IVPush PRN (08:00)
[2020-07-19] MEDS ORDERED: DEXTROSE 4 GM TAB.CHEW PO PRN (08:00)
[2020-07-19] MEDS ORDERED: GLUCAGON 1 MG IM PRN (08:00)
[2020-07-19 11:52] LABS: CHLORIDE 103 mmol/L (98-107)
[2020-07-19] MEDS: PIPERACILLIN/TAZO/PMX 4.5GM 100 ML IV SCH ×3 (11:56→23:52)
[2020-07-19 11:57] LABS: BASOPHILS % (AUTO) 1 % (0-1); EOSINOPHILS % (AUTO) 0 % (1-7); LYMPHOCYTES % (AUTO) 9 % (22-44); MEAN CORPUSCULAR HEMOGLOBIN 30.1 pg (27.5-34.5); MEAN PLATELET VOLUME 8.6 fL (7.4-10.4); MONOCYTES % (AUTO) 5 % (2-9); NEUTROPHILS % (AUTO) 85 % (42-75); PLATELET COUNT 541 x10^3/uL (130-400); RED BLOOD COUNT 4.03 x10^6/uL (4.38-5.82); RED CELL DISTRIBUTION WIDTH 15.7 % (9.4-14.8)
[2020-07-19 12:07] LABS: ANION GAP 6 mmol/L (5-15); CALCIUM 8.5 mg/dL (8.5-10.1); CREATININE 0.82 mg/dL (0.7-1.3)
[2020-07-19 12:08] LABS: MD NO
[2020-07-19 12:40] VITALS: BP 118/83
[2020-07-19] MEDS: HYDROcodone/APAP 5/325 TABLET PO PRN ×2 (15:07→21:00)
[2020-07-19 20:02] VITALS: BP 113/81
[2020-07-19] MEDS: DIVALPROEX 500 MG TABLET.DR PO SCH (21:00)
[2020-07-20] MEDS: LACTATED RINGERS 1,000 ML IV SCH (01:13)
[2020-07-20] MEDS: PIPERACILLIN/TAZO/PMX 4.5GM 100 ML IV SCH ×3 (05:22→18:28)
[2020-07-20] MEDS: CHLORHEXIDINE 15 ML UDC MM SCH ×4 (05:23→20:40)
[2020-07-20] MEDS: HYDROcodone/APAP 5/325 TABLET PO PRN ×3 (05:23→20:40)
[2020-07-20] MEDS: OMEPRAZOLE 20 MG CAPSULE.DR PO SCH (05:23)
[2020-07-20 07:45] VITALS: BP 116/78
[2020-07-20 08:05] LABS: ANION GAP 5 mmol/L (5-15); CALCIUM 8.3 mg/dL (8.5-10.1); CHLORIDE 99 mmol/L (98-107)
[2020-07-20 08:06] LABS: BASOPHILS % (AUTO) 1 % (0-1); EOSINOPHILS % (AUTO) 1 % (1-7); LYMPHOCYTES % (AUTO) 9 % (22-44); MEAN CORPUSCULAR HEMOGLOBIN 30.4 pg (27.5-34.5); MEAN CORPUSCULAR HGB CONC 33.9 g/dL (33.2-36.2); MEAN PLATELET VOLUME 8.5 fL (7.4-10.4); MONOCYTES % (AUTO) 4 % (2-9); NEUTROPHILS % (AUTO) 86 % (42-75); PLATELET COUNT 489 x10^3/uL (130-400); RED BLOOD COUNT 4.05 x10^6/uL (4.38-5.82); RED CELL DISTRIBUTION WIDTH 15.5 % (9.4-14.8)
[2020-07-20 08:44] LABS: MD SCAN
[2020-07-20] MEDS: INSULIN LISPRO 100 UNITS/ML, PEN SQ-INSULIN SCH ×4 (08:49→20:40)
[2020-07-20] MEDS: INSULIN GLARGINE 100 UNITS/ML, PEN SQ-INSULIN SCH ×2 (08:50→20:41)
[2020-07-20] MEDS ORDERED: INSULIN GLARGINE 100 UNITS/ML, PEN SQ-INSULIN ONE (09:30)
[2020-07-20 13:29] VITALS: BP 106/71
[2020-07-20 19:53] VITALS: BP 95/61
[2020-07-20] MEDS: DIVALPROEX 500 MG TABLET.DR PO SCH (20:40)
[2020-07-21] MEDS: PIPERACILLIN/TAZO/PMX 4.5GM 100 ML IV SCH ×4 (00:08→17:47)
[2020-07-21 01:35] VITALS: BP 104/68
[2020-07-21] MEDS: CHLORHEXIDINE 15 ML UDC MM SCH ×4 (05:43→20:31)
[2020-07-21] MEDS: OMEPRAZOLE 20 MG CAPSULE.DR PO SCH (05:43)
[2020-07-21 07:15] VITALS: BP 113/77
[2020-07-21] MEDS: INSULIN GLARGINE 100 UNITS/ML, PEN SQ-INSULIN SCH (08:15)
[2020-07-21] MEDS: INSULIN LISPRO 100 UNITS/ML, PEN SQ-INSULIN SCH ×4 (08:15→20:55)
[2020-07-21] MEDS: HYDROcodone/APAP 5/325 TABLET PO PRN ×3 (08:33→20:55)
[2020-07-21] MEDS ORDERED: INSULIN GLARGINE 100 UNITS/ML, PEN SQ-INSULIN SCH ×2 (09:00→21:00)
[2020-07-21] MEDS ORDERED: INSULIN GLARGINE 100 UNITS/ML, PEN SQ-INSULIN ONE (09:00)
[2020-07-21] MEDS: FLUTICASONE/VILANTEROL 200-25MCG/INH INH SCH (12:05)
[2020-07-21] MEDS: ALBUTEROL-IPRATROPIUM MDI INH INH SCH ×3 (12:06→20:32)
[2020-07-21 12:48] VITALS: BP 99/67
[2020-07-21 18:50] VITALS: BP 95/57
[2020-07-21] MEDS: DIVALPROEX 500 MG TABLET.DR PO SCH (20:31)
[2020-07-22] MEDS: PIPERACILLIN/TAZO/PMX 4.5GM 100 ML IV SCH ×3 (00:04→11:44)
[2020-07-22 01:11] VITALS: BP 104/63
[2020-07-22] MEDS: OMEPRAZOLE 20 MG CAPSULE.DR PO SCH (06:10)
[2020-07-22] MEDS: HYDROcodone/APAP 5/325 TABLET PO PRN ×2 (06:10→20:05)
[2020-07-22] MEDS: CHLORHEXIDINE 15 ML UDC MM SCH ×4 (06:10→20:05)
[2020-07-22] MEDS: ALBUTEROL-IPRATROPIUM MDI INH INH SCH ×4 (06:10→20:05)
[2020-07-22] MEDS: INSULIN GLARGINE 100 UNITS/ML, PEN SQ-INSULIN SCH ×2 (07:58→20:25)
[2020-07-22] MEDS: INSULIN LISPRO 100 UNITS/ML, PEN SQ-INSULIN SCH ×4 (07:58→20:25)
[2020-07-22] MEDS: FLUTICASONE/VILANTEROL 200-25MCG/INH INH SCH (11:03)
[2020-07-22 13:07] VITALS: BP 114/77
[2020-07-22] MEDS: AZITHROMYCIN 500 MG TABLET PO SCH (14:33)
[2020-07-22] MEDS ORDERED: INSULIN LISPRO 100 UNITS/ML, PEN SQ-INSULIN ONE (18:00)
[2020-07-22] MEDS: DIVALPROEX 500 MG TABLET.DR PO SCH (20:05)
[2020-07-22 20:06] VITALS: BP 121/78
[2020-07-23] MEDS: OMEPRAZOLE 20 MG CAPSULE.DR PO SCH (06:28)
[2020-07-23] MEDS: CHLORHEXIDINE 15 ML UDC MM SCH ×4 (06:28→21:25)
[2020-07-23] MEDS: HYDROcodone/APAP 5/325 TABLET PO PRN ×2 (06:28→21:32)
[2020-07-23] MEDS: ALBUTEROL-IPRATROPIUM MDI INH INH SCH ×4 (06:29→21:25)
[2020-07-23] MEDS: INSULIN LISPRO 100 UNITS/ML, PEN SQ-INSULIN SCH ×4 (07:00→21:26)
[2020-07-23] MEDS: INSULIN GLARGINE 100 UNITS/ML, PEN SQ-INSULIN SCH ×2 (08:05→21:26)
[2020-07-23 10:20] LABS: BASOPHILS % (AUTO) 1 % (0-1); EOSINOPHILS % (AUTO) 0 % (1-7); LYMPHOCYTES % (AUTO) 27 % (22-44); MEAN CORPUSCULAR HEMOGLOBIN 30.7 pg (27.5-34.5); MEAN CORPUSCULAR HGB CONC 34.1 g/dL (33.2-36.2); MEAN PLATELET VOLUME 8.3 fL (7.4-10.4); MONOCYTES % (AUTO) 7 % (2-9); NEUTROPHILS % (AUTO) 65 % (42-75); PLATELET COUNT 452 x10^3/uL (130-400); RED BLOOD COUNT 3.84 x10^6/uL (4.38-5.82)
[2020-07-23 10:21] LABS: MD NO
[2020-07-23 10:32] LABS: ANION GAP 6 mmol/L (5-15); CALCIUM 8.5 mg/dL (8.5-10.1); CHLORIDE 104 mmol/L (98-107)
[2020-07-23] MEDS: FLUTICASONE/VILANTEROL 200-25MCG/INH INH SCH (11:08)
[2020-07-23 12:31] VITALS: BP 111/64
[2020-07-23] MEDS ORDERED: MAGNESIUM SULFATE PMX 2GM/50ML 50 ML IV ONE (13:00)
[2020-07-23] MEDS: AZITHROMYCIN 500 MG TABLET PO SCH (13:16)
[2020-07-23] MEDS: DIVALPROEX 500 MG TABLET.DR PO SCH (21:26)
[2020-07-24] MEDS: CHLORHEXIDINE 15 ML UDC MM SCH ×2 (05:12→11:23)
[2020-07-24] MEDS: ALBUTEROL-IPRATROPIUM MDI INH INH SCH ×2 (05:12→11:23)
[2020-07-24] MEDS: OMEPRAZOLE 20 MG CAPSULE.DR PO SCH (05:12)
[2020-07-24] MEDS: INSULIN LISPRO 100 UNITS/ML, PEN SQ-INSULIN SCH ×2 (07:00→11:28)
[2020-07-24] MEDS: INSULIN GLARGINE 100 UNITS/ML, PEN SQ-INSULIN SCH (08:20)
[2020-07-24 08:26] LABS: ANION GAP 5 mmol/L (5-15); CALCIUM 8.7 mg/dL (8.5-10.1); CHLORIDE 106 mmol/L (98-107); CREATININE 0.69 mg/dL (0.7-1.3)
[2020-07-24] MEDS: HYDROcodone/APAP 5/325 TABLET PO PRN (08:26)
[2020-07-24 08:41] VITALS: BP 125/76
[2020-07-24] MEDS: FLUTICASONE/VILANTEROL 200-25MCG/INH INH SCH (11:24)
[2020-07-24] MEDS ORDERED: FLUT1BLS INH (11:51)
[2020-07-24] MEDS ORDERED: AZIT500T10 PO (11:51)
[2020-07-24] MEDS ORDERED: INSULIN LISPRO 100 UNITS/ML, PEN SQ-INSULIN ONE (13:30)
== END 2020-07-24 14:07 | disposition home or self-care (01) | DRG 871 ==
LOC: ED 20:16 → EDIP 21:12 → 3N 22:16 → DCLOUNGE 07-24 13:56
PROVIDERS: ADMIT Family Medicine; ATTEND Internal Medicine
DX: A41.9 Sepsis, unspecified organism (principal); E43 Unspecified severe protein-calorie malnutrition; J69.0 Pneumonitis due to inhalation of food and vomit; J44.1 Chronic obstructive pulmonary disease with (acute) exacerbation; J44.0 Chronic obstructive pulmonary disease with (acute) lower respiratory infection; F17.210 Nicotine dependence, cigarettes, uncomplicated; F19.90 Other psychoactive substance use, unspecified, uncomplicated; G40.909 Epilepsy, unspecified, not intractable, without status epilepticus; E10.65 Type 1 diabetes mellitus with hyperglycemia; F15.129 Other stimulant abuse with intoxication, unspecified; Z66 Do not resuscitate; Z88.8 Allergy status to other drugs, medicaments and biological substances; Z63.8 Other specified problems related to primary support group; Z79.4 Long term (current) use of insulin; Z59.0 Homelessness; Z68.22 Body mass index [BMI] 22.0-22.9, adult; Z79.899 Other long term (current) drug therapy
CPT/HCPCS: 36415; 71045; 74177; 80048; 80053; 80307; 81003; 82947; 82962; 83036; 83690; 83735; 84145; 85025; 96374; 96375; 99285; G0378; J2405; J2543; Q9967; J1815; J2270; J3475; J7030; J7120; J7512

== ENCOUNTER 2020-08-05 16:30 | Inpatient (IN) | payer MEDICAID ==
[~2020-08-05] VITALS: Ht 157.5 cm; Wt 46.9 kg
[~2020-08-05 16:30] MED LIST changes: +AZIT500T10 PO; +CHLO473M PO; +FLUT1BLS INH; +HYDR-3237 PO; +INSU100I11 SQ
[2020-08-05] MEDS ORDERED: KETOROLAC 30 MG/1 ML IVPush ONE (17:00)
[2020-08-05] MEDS ORDERED: SODIUM CHLORIDE 0.9% 1,000ML IVBOLUS ONE (17:00)
[2020-08-05] MEDS ORDERED: KETOROLAC 30 MG/1 ML ONE (17:02)
[2020-08-05] MEDS ORDERED: ONDANSETRON 2MG/ML, 2ML ONE (17:15)
[2020-08-05 17:18] LABS: PH, VENOUS 7.357 pH (7.320-7.420)
[2020-08-05 17:19] LABS: FIO2 ROOM AIR %
--- NOTE | 2020-08-05 17:20 | NUR ---
PT MEDICATED FOR PAIN, NO DISTRESS,
[2020-08-05] MEDS ORDERED: ONDANSETRON 2MG/ML, 2ML IVPush ONE (17:30)
[2020-08-05 17:33] LABS: ALANINE AMINOTRANSFERASE 36 U/L (12-78); ALBUMIN 3.1 g/dL (3.4-5.0); ANION GAP 11 mmol/L (5-15); CALCIUM 8.7 mg/dL (8.5-10.1); CHLORIDE 92 mmol/L (98-107); CREATININE 1.07 mg/dL (0.7-1.3)
[2020-08-05 17:35] LABS: ALKALINE PHOSPHATASE 152 U/L (45-117); BILIRUBIN,TOTAL 0.9 mg/dL (0.2-1.0); TOTAL PROTEIN 7.1 g/dL (6.4-8.2)
[2020-08-05 17:40] LABS: BASOPHILS % (AUTO) 1 % (0-1); EOSINOPHILS % (AUTO) 1 % (1-7); LYMPHOCYTES % (AUTO) 11 % (22-44); MEAN CORPUSCULAR HEMOGLOBIN 30.5 pg (27.5-34.5); MEAN CORPUSCULAR HGB CONC 32.9 g/dL (33.2-36.2); MEAN PLATELET VOLUME 9.6 fL (7.4-10.4); MONOCYTES % (AUTO) 5 % (2-9); NEUTROPHILS % (AUTO) 82 % (42-75); PLATELET COUNT 453 x10^3/uL (130-400); RED BLOOD COUNT 4.49 x10^6/uL (4.38-5.82); RED CELL DISTRIBUTION WIDTH 15.4 % (9.4-14.8)
[2020-08-05 17:49] LABS: MD NO
[2020-08-05 18:12] LABS: ACETONE, SERUM Large (80mg/dL) (Negative)
[2020-08-05] MEDS ORDERED: INSULIN REGULAR 100 UNITS/ML, 3ML VIAL SQ-INSULIN SCH (18:30)
--- NOTE | 2020-08-05 19:15 | NUR ---
ADMIN INSULIN, VSS, NO DISTRESS
--- NOTE | 2020-08-05 19:46 | NUR ---
PT IN BED RESTING, FSBS 579, VSS
--- NOTE | 2020-08-05 20:31 | NUR ---
PT TRANSFERED TO 357 REPORT GIVEN TO TITO DILLON, VSS NO DISTRESS,
[2020-08-05 20:32] VITALS: BP 112/73
[2020-08-05] MEDS: LACTATED RINGERS 1,000 ML IV SCH (21:07)
[2020-08-05] MEDS ORDERED: MELATONIN 5 MG TABLET PO PRN (22:00)
[2020-08-05] MEDS ORDERED: LIDODERM 5% PATCH TD PRN (22:00)
[2020-08-05] MEDS: HEPARIN 5,000 UNITS/ML, 1ML SQ SCH (22:00)
[2020-08-05] MEDS ORDERED: LORazepam 0.5MG TABLET PO ONE (22:00)
[2020-08-05 22:51] VITALS: BP 115/76
[2020-08-05] MEDS: INSULIN LISPRO 100 UNITS/ML, PEN SQ-INSULIN SCH (23:14)
[2020-08-06] MEDS: ACETAMINOPHEN 325 MG TABLET PO PRN ×3 (01:02→22:49)
[2020-08-06 02:12] LABS: MICROSCOPIC NOT IND
[2020-08-06 02:15] VITALS: BP 117/78
[2020-08-06] MEDS: LACTATED RINGERS 1,000 ML IV SCH ×2 (03:08→08:39)
[2020-08-06] MEDS: HEPARIN 5,000 UNITS/ML, 1ML SQ SCH ×3 (06:15→22:48)
[2020-08-06 07:22] VITALS: BP 130/88
[2020-08-06] MEDS: INSULIN LISPRO 100 UNITS/ML, PEN SQ-INSULIN SCH ×4 (07:44→21:55)
[2020-08-06 07:52] LABS: BASOPHILS % (AUTO) 2 % (0-1); EOSINOPHILS % (AUTO) 2 % (1-7); LYMPHOCYTES % (AUTO) 19 % (22-44); MEAN CORPUSCULAR HEMOGLOBIN 30.5 pg (27.5-34.5); MEAN CORPUSCULAR HGB CONC 33.7 g/dL (33.2-36.2); MEAN PLATELET VOLUME 8.9 fL (7.4-10.4); MONOCYTES % (AUTO) 6 % (2-9); NEUTROPHILS % (AUTO) 71 % (42-75); PLATELET COUNT 408 x10^3/uL (130-400); RED CELL DISTRIBUTION WIDTH 15.4 % (9.4-14.8)
[2020-08-06 07:56] LABS: MD NO
[2020-08-06 08:03] LABS: ANION GAP 7 mmol/L (5-15); CALCIUM 8.4 mg/dL (8.5-10.1); CHLORIDE 100 mmol/L (98-107); CREATININE 0.89 mg/dL (0.7-1.3)
[2020-08-06] MEDS: NICOTINE 21 MG/24 HR PATCH.TD24 TD SCH (12:02)
[2020-08-06] MEDS ORDERED: MAALOX/HYOSCYAMINE/LIDOCAINE 45 ML BTL PO ONE (12:30)
[2020-08-06] MEDS: INSULIN GLARGINE 100 UNITS/ML, PEN SQ-INSULIN SCH ×2 (13:11→21:45)
[2020-08-06 13:15] VITALS: BP 132/88
[2020-08-06] MEDS: ONDANSETRON 2MG/ML, 2ML IVPush PRN ×2 (18:20→22:49)
[2020-08-06 19:50] VITALS: BP 122/75
[2020-08-06] MEDS ORDERED: LACTATED RINGERS 1,000 ML IV SCH (21:00)
[2020-08-06] MEDS: INSULIN LISPRO 100 UNITS/ML, PEN SQ-INSULIN PRN (22:31)
[2020-08-07] MEDS ORDERED: MAALOX/HYOSCYAMINE/LIDOCAINE 45 ML BTL PO ONE (01:00)
[2020-08-07 01:31] VITALS: BP 143/81
[2020-08-07] MEDS: INSULIN LISPRO 100 UNITS/ML, PEN SQ-INSULIN PRN (04:31)
[2020-08-07] MEDS: HEPARIN 5,000 UNITS/ML, 1ML SQ SCH ×2 (04:52→13:44)
[2020-08-07] MEDS: ONDANSETRON 2MG/ML, 2ML IVPush PRN ×3 (04:52→15:22)
[2020-08-07 06:24] LABS: ALBUMIN 3.1 g/dL (3.4-5.0); ANION GAP 20 mmol/L (5-15); CALCIUM 8.9 mg/dL (8.5-10.1); CHLORIDE 91 mmol/L (98-107)
[2020-08-07 06:25] LABS: BASOPHILS % (AUTO) 1 % (0-1); EOSINOPHILS % (AUTO) 0 % (1-7); LYMPHOCYTES % (AUTO) 11 % (22-44); MEAN CORPUSCULAR HEMOGLOBIN 31.2 pg (27.5-34.5); MEAN CORPUSCULAR HGB CONC 33.5 g/dL (33.2-36.2); MEAN PLATELET VOLUME 10.1 fL (7.4-10.4); MONOCYTES % (AUTO) 4 % (2-9); NEUTROPHILS % (AUTO) 85 % (42-75); PLATELET COUNT 467 x10^3/uL (130-400); RED BLOOD COUNT 4.74 x10^6/uL (4.38-5.82); RED CELL DISTRIBUTION WIDTH 15.3 % (9.4-14.8)
[2020-08-07 06:28] LABS: ALANINE AMINOTRANSFERASE 38 U/L (12-78); ALKALINE PHOSPHATASE 151 U/L (45-117); BILIRUBIN,TOTAL 1.4 mg/dL (0.2-1.0); TOTAL PROTEIN 7.2 g/dL (6.4-8.2)
[2020-08-07 06:58] LABS: MD SCAN
[2020-08-07] MEDS ORDERED: PROMETHAZINE 25 MG/ML, 1ML ONE (07:48)
[2020-08-07] MEDS ORDERED: INSULIN REGULAR 100 UNITS/ML, 3ML VIAL IVPush ONE (08:00)
[2020-08-07] MEDS ORDERED: PROMETHAZINE 25 MG/ML, 1ML IM PRN (08:00)
[2020-08-07] MEDS ORDERED: SODIUM CHLORIDE 0.9% 1,000ML IVBOLUS ONE (08:30)
[2020-08-07] MEDS ORDERED: INSULIN LISPRO 100 UNITS/ML, PEN SQ-INSULIN ONE ×2 (08:30→16:30)
[2020-08-07] MEDS: INSULIN GLARGINE 100 UNITS/ML, PEN SQ-INSULIN SCH ×5 (09:00→22:11)
[2020-08-07 09:05] LABS: O2 FLOW ROOM AIR L/min
[2020-08-07 10:29] LABS: ALANINE AMINOTRANSFERASE 39 U/L (12-78); ALBUMIN 2.9 g/dL (3.4-5.0); ANION GAP 21 mmol/L (5-15); CALCIUM 8.3 mg/dL (8.5-10.1); CHLORIDE 102 mmol/L (98-107); CREATININE 1.15 mg/dL (0.7-1.3)
[2020-08-07 10:32] LABS: ALKALINE PHOSPHATASE 140 U/L (45-117); BILIRUBIN,TOTAL 0.5 mg/dL (0.2-1.0); TOTAL PROTEIN 6.9 g/dL (6.4-8.2)
[2020-08-07 11:26] LABS: RAPID INFLUENZA A Negative (Negative); RAPID INFLUENZA B Negative (Negative)
[2020-08-07 12:22] LABS: BASOPHILS % (AUTO) 1 % (0-1); EOSINOPHILS % (AUTO) 0 % (1-7); LYMPHOCYTES % (AUTO) 10 % (22-44); MEAN CORPUSCULAR HEMOGLOBIN 30.7 pg (27.5-34.5); MEAN PLATELET VOLUME 8.5 fL (7.4-10.4); MONOCYTES % (AUTO) 5 % (2-9); NEUTROPHILS % (AUTO) 84 % (42-75); PLATELET COUNT 475 x10^3/uL (130-400); RED BLOOD COUNT 4.58 x10^6/uL (4.38-5.82); RED CELL DISTRIBUTION WIDTH 15.4 % (9.4-14.8)
[2020-08-07 12:24] LABS: MD NO
[2020-08-07 12:33] LABS: INTERNATIONAL NORMALIZED RATIO 0.89 (0.93-1.1); PROTHROMBIN TIME 9.4 Seconds (9.6-11.5)
[2020-08-07] MEDS: NICOTINE 21 MG/24 HR PATCH.TD24 TD SCH (13:15)
[2020-08-07] MEDS ORDERED: LORazepam 2 MG/ML, 1ML IVPush PRN (14:30)
[2020-08-07] MEDS ORDERED: MORPHINE SULFATE 4 MG/ML, 1ML IVPush PRN (15:00)
[2020-08-07] MEDS: ENOXAPARIN 40 MG/0.4 ML SQ SCH (15:00)
[2020-08-07 15:09] LABS: ANION GAP 22 mmol/L (5-15); CALCIUM 8.9 mg/dL (8.5-10.1); CHLORIDE 100 mmol/L (98-107); CREATININE 1.27 mg/dL (0.7-1.3)
[2020-08-07] MEDS ORDERED: ESOMEPRAZOLE 40 MG IV IVPush SCH (16:00)
[2020-08-07] MEDS ORDERED: LACTATED RINGERS 1,000 ML IV SCH ×2 (21:00)
[2020-08-07] MEDS ORDERED: REGULAR INSULIN 100 UNITS in SODIUM CHLORIDE 0.9% 99 ML IV PRN ×2 (22:00→23:45)
[2020-08-07] MEDS ORDERED: INSULIN REGULAR 100 UNITS/ML, 3ML VIAL IV ONE (23:45)
[2020-08-07] MEDS ORDERED: INSULIN INFUSION FOR ICU PROTOCOL XX PRN (23:45)
[2020-08-08] MEDS ORDERED: REGULAR INSULIN 100 UNITS in SODIUM CHLORIDE 0.9% 99 ML IV PRN
[2020-08-08] MEDS: D5%-0.45NACL+KCL 20MEQ 1,000 ML IV SCH ×2 (00:01→04:05)
[2020-08-08] MEDS: SODIUM CHLORIDE 0.9% 1,000 ML IV SCH ×2 (00:01→04:03)
[2020-08-08 00:03] LABS: ANION GAP 20 mmol/L (5-15); CALCIUM 8.8 mg/dL (8.5-10.1); CHLORIDE 104 mmol/L (98-107); CREATININE 1.37 mg/dL (0.7-1.3)
[2020-08-08 02:46] LABS: ANION GAP 17 mmol/L (5-15); CALCIUM 8.9 mg/dL (8.5-10.1); CHLORIDE 109 mmol/L (98-107); CREATININE 1.48 mg/dL (0.7-1.3)
[2020-08-08 03:54] LABS: BASOPHILS % (AUTO) 1 % (0-1); EOSINOPHILS % (AUTO) 0 % (1-7); LYMPHOCYTES % (AUTO) 15 % (22-44); MEAN CORPUSCULAR HEMOGLOBIN 31.1 pg (27.5-34.5); MEAN CORPUSCULAR HGB CONC 34.5 g/dL (33.2-36.2); MONOCYTES % (AUTO) 9 % (2-9); NEUTROPHILS % (AUTO) 75 % (42-75); PLATELET COUNT 439 x10^3/uL (130-400); RED BLOOD COUNT 4.69 x10^6/uL (4.38-5.82); RED CELL DISTRIBUTION WIDTH 15.8 % (9.4-14.8)
[2020-08-08 04:01] LABS: ALANINE AMINOTRANSFERASE 36 U/L (12-78); ANION GAP 14 mmol/L (5-15); CALCIUM 8.9 mg/dL (8.5-10.1); CHLORIDE 110 mmol/L (98-107); CREATININE 1.38 mg/dL (0.7-1.3)
[2020-08-08 04:03] LABS: ALKALINE PHOSPHATASE 130 U/L (45-117); BILIRUBIN,TOTAL 0.6 mg/dL (0.2-1.0); TOTAL PROTEIN 7.2 g/dL (6.4-8.2)
[2020-08-08] MEDS: LACTATED RINGERS 1,000 ML IV SCH ×2 (04:03→22:06)
[2020-08-08 05:46] LABS: MD SCAN
[2020-08-08] MEDS: INSULIN GLARGINE 100 UNITS/ML, PEN SQ-INSULIN SCH ×2 (09:00→21:00)
[2020-08-08] MEDS ORDERED: ESOMEPRAZOLE 40 MG IV IVPush SCH (09:00)
[2020-08-08] MEDS ORDERED: OMEPRAZOLE 20 MG CAPSULE.DR PO ONE (10:00)
[2020-08-08] MEDS: NICOTINE 21 MG/24 HR PATCH.TD24 TD SCH (12:34)
[2020-08-08] MEDS: INSULIN LISPRO 100 UNITS/ML, PEN SQ-INSULIN PRN (12:36)
[2020-08-08 15:06] LABS: ANION GAP 7 mmol/L (5-15); CALCIUM 8.7 mg/dL (8.5-10.1); CHLORIDE 105 mmol/L (98-107)
[2020-08-08 15:07] LABS: CREATININE 1.16 mg/dL (0.7-1.3)
[2020-08-08] MEDS: ENOXAPARIN 40 MG/0.4 ML SQ SCH (15:51)
[2020-08-08 17:29] VITALS: BP 130/80
[2020-08-08] MEDS: INSULIN LISPRO 100 UNITS/ML, PEN SQ-INSULIN SCH ×2 (18:00→22:57)
[2020-08-08 18:36] VITALS: BP 114/75
[2020-08-08 19:04] LABS: ANION GAP 9 mmol/L (5-15); CALCIUM 8.6 mg/dL (8.5-10.1); CHLORIDE 105 mmol/L (98-107); CREATININE 1.04 mg/dL (0.7-1.3)
[2020-08-08] MEDS ORDERED: DEXTROSE 50%, 50ML SYRINGE IVPush PRN (22:00)
[2020-08-08] MEDS ORDERED: GLUCAGON 1 MG IM PRN (22:00)
[2020-08-08] MEDS ORDERED: DEXTROSE 4 GM TAB.CHEW PO PRN (22:00)
[2020-08-08 22:54] VITALS: BP 149/90
[2020-08-09] MEDS: ACETAMINOPHEN 325 MG TABLET PO PRN ×2 (02:53→20:32)
[2020-08-09] MEDS: INSULIN GLARGINE 100 UNITS/ML, PEN SQ-INSULIN SCH ×3 (03:13→20:34)
[2020-08-09 06:52] VITALS: BP 120/73
[2020-08-09] MEDS: INSULIN LISPRO 100 UNITS/ML, PEN SQ-INSULIN SCH ×4 (07:44→20:34)
[2020-08-09 08:32] LABS: BASOPHILS % (AUTO) 1 % (0-1); EOSINOPHILS % (AUTO) 1 % (1-7); LYMPHOCYTES % (AUTO) 26 % (22-44); MEAN CORPUSCULAR HEMOGLOBIN 31.1 pg (27.5-34.5); MEAN CORPUSCULAR HGB CONC 34.5 g/dL (33.2-36.2); MEAN PLATELET VOLUME 8.8 fL (7.4-10.4); MONOCYTES % (AUTO) 8 % (2-9); NEUTROPHILS % (AUTO) 64 % (42-75); PLATELET COUNT 392 x10^3/uL (130-400); RED CELL DISTRIBUTION WIDTH 15.2 % (9.4-14.8)
[2020-08-09 08:34] LABS: MD NO
[2020-08-09 08:35] LABS: ALANINE AMINOTRANSFERASE 33 U/L (12-78); ALBUMIN 2.4 g/dL (3.4-5.0); ANION GAP 6 mmol/L (5-15); CALCIUM 8.5 mg/dL (8.5-10.1); CHLORIDE 103 mmol/L (98-107); CREATININE 0.82 mg/dL (0.7-1.3)
[2020-08-09 08:37] LABS: ALKALINE PHOSPHATASE 106 U/L (45-117); BILIRUBIN,TOTAL 0.7 mg/dL (0.2-1.0); TOTAL PROTEIN 5.7 g/dL (6.4-8.2)
[2020-08-09] MEDS: SODIUM CHLORIDE FLUSH 10ML SYR IVF SCH ×2 (09:00→20:34)
[2020-08-09 11:29] LABS: ANION GAP 3 mmol/L (5-15); CALCIUM 8.2 mg/dL (8.5-10.1); CHLORIDE 104 mmol/L (98-107); CREATININE 0.71 mg/dL (0.7-1.3)
[2020-08-09] MEDS: LACTATED RINGERS 1,000 ML IV SCH (11:33)
[2020-08-09] MEDS: NICOTINE 21 MG/24 HR PATCH.TD24 TD SCH (12:15)
[2020-08-09] MEDS ORDERED: POTASSIUM CHLORIDE 10% 20 MEQ/15 ML UDC ONE (12:21)
[2020-08-09] MEDS ORDERED: POTASSIUM CHLORIDE 10% 40 MEQ/30 ML UDC PO ONE (12:30)
[2020-08-09 13:21] VITALS: BP 112/74
[2020-08-09 14:54] LABS: ANION GAP 2 mmol/L (5-15); CALCIUM 8.2 mg/dL (8.5-10.1); CHLORIDE 103 mmol/L (98-107); CREATININE 0.78 mg/dL (0.7-1.3)
[2020-08-09] MEDS: ENOXAPARIN 40 MG/0.4 ML SQ SCH (15:54)
[2020-08-09 18:17] LABS: ANION GAP 7 mmol/L (5-15); CALCIUM 8.4 mg/dL (8.5-10.1); CHLORIDE 102 mmol/L (98-107)
[2020-08-09 20:02] VITALS: BP 117/77
[2020-08-09] MEDS: ALUMINUM/MAG/SIMETHICONE 30 ML UDC PO PRN (20:32)
[2020-08-09 23:10] LABS: ANION GAP 4 mmol/L (5-15); CALCIUM 8.4 mg/dL (8.5-10.1); CHLORIDE 102 mmol/L (98-107); CREATININE 0.83 mg/dL (0.7-1.3)
[2020-08-10 01:12] VITALS: BP 126/89
[2020-08-10] MEDS: ALUMINUM/MAG/SIMETHICONE 30 ML UDC PO PRN ×2 (01:40→11:30)
[2020-08-10] MEDS: ACETAMINOPHEN 325 MG TABLET PO PRN ×3 (01:40→11:31)
[2020-08-10] MEDS ORDERED: PANTOPRAZOLE 40MG TABLET PO SCH (06:00)
[2020-08-10] MEDS: INSULIN LISPRO 100 UNITS/ML, PEN SQ-INSULIN SCH ×2 (07:47→11:31)
[2020-08-10 08:34] VITALS: BP 131/88
[2020-08-10] MEDS: SODIUM CHLORIDE FLUSH 10ML SYR IVF SCH (09:00)
[2020-08-10] MEDS: INSULIN GLARGINE 100 UNITS/ML, PEN SQ-INSULIN SCH (09:22)
[2020-08-10] MEDS: NICOTINE 21 MG/24 HR PATCH.TD24 TD SCH (11:31)
[2020-08-10] MEDS ORDERED: PANT40TA6 PO (11:48)
[2020-08-10] MEDS ORDERED: INSU100I11 SQ-INSULIN (11:48)
[2020-08-10] MEDS ORDERED: MAG30ORA PO (11:48)
[2020-08-10] MEDS ORDERED: INSU100I13 SQ-INSULIN (11:48)
[2020-08-10 14:14] VITALS: BP 121/82
== END 2020-08-10 15:35 | disposition home or self-care (01) | DRG 638 ==
LOC: ED 19:23 → EDIP 19:55 → 3N 20:44 → 4WST 08-06 20:52 → ICU 08-07 08:08 → 3N 08-08 15:59
PROVIDERS: ADMIT Family Medicine; ATTEND Internal Medicine
DX: E10.10 Type 1 diabetes mellitus with ketoacidosis without coma (principal); F15.23 Other stimulant dependence with withdrawal; N13.30 Unspecified hydronephrosis; F17.210 Nicotine dependence, cigarettes, uncomplicated; G40.909 Epilepsy, unspecified, not intractable, without status epilepticus; D63.8 Anemia in other chronic diseases classified elsewhere; K59.00 Constipation, unspecified; F32.9 Major depressive disorder, single episode, unspecified; K80.20 Calculus of gallbladder without cholecystitis without obstruction; N32.89 Other specified disorders of bladder; J44.9 Chronic obstructive pulmonary disease, unspecified; Z20.822 Contact with and (suspected) exposure to COVID-19; Z63.8 Other specified problems related to primary support group; Z59.0 Homelessness; Z79.4 Long term (current) use of insulin; Z87.01 Personal history of pneumonia (recurrent); Z91.14 Patient's other noncompliance with medication regimen; Z91.19 Patient's noncompliance with other medical treatment and regimen
CPT/HCPCS: 36415; 36600; 71045; 74176; 80048; 80053; 81003; 82010; 82803; 82947; 82962; 83605; 83735; 84100; 85025; 85610; 85730; 87400; 96361; 96374; 96375; 99285; G0378; J1644; J1650; J1815; J1885; J2405; J2550; J2060; J3480; J7030; J7120; U0003

== ENCOUNTER 2020-10-02 01:35 | Emergency (ER) | payer MEDICAID ==
[~2020-10-02] VITALS: Ht 157.5 cm; Wt 50.0 kg
[~2020-10-02 01:35] MED LIST changes: +MAG30ORA PO; +PANT40TA6 PO
--- NOTE | 2020-10-02 01:35 | NUR ---
BREAK RN: PT BIB EMS FROM [facility]. REPORTS A FEW DAYS AGO THAT HIS INSULIN WAS STOLEN AND HE IS A TYPE 1 DIABETIC. PT ASKED WORKER [facility] FOR [facility]IN AND THEY TOOK FINGERSTICK, PT WAS "HIGH" ON THEIR MONITOR. EMS ARRIVAL PT WAS 370 FINGER STICK. PT REPORTS DRY MOUTH, FATIGUE, POLYURIA, POLYDIPSIA, N/V. PT CHANGED INTO GOWN, RESTING ON GURNEY, PLACED ON SPO2/BP/ECG MONITORING AT THIS TIME. PROVIDED WARM BLANKETS FOR COMFORT, RAILS ENGAGED, CALL LIGHT ON LAP, [place]. SAGAR MARQUEZ AT BS FOR EVAL AND POC.
[2020-10-02] MEDS ORDERED: INSU100V8 SQ (01:44)
[2020-10-02] MEDS ORDERED: OMEP20TA62 PO (01:44)
[2020-10-02] MEDS ORDERED: INSU100C SQ-INSULIN (01:44)
[2020-10-02 02:04] LABS: PH, VENOUS 7.359 pH (7.320-7.420)
[2020-10-02 02:09] LABS: BASOPHILS % (AUTO) 1 % (0-1); EOSINOPHILS % (AUTO) 2 % (1-7); LYMPHOCYTES % (AUTO) 19 % (22-44); MEAN CORPUSCULAR HEMOGLOBIN 31.3 pg (27.5-34.5); MEAN CORPUSCULAR HGB CONC 34.3 g/dL (33.2-36.2); MEAN PLATELET VOLUME 8.4 fL (7.4-10.4); MONOCYTES % (AUTO) 6 % (2-9); NEUTROPHILS % (AUTO) 71 % (42-75); PLATELET COUNT 429 x10^3/uL (130-400); RED BLOOD COUNT 4.42 x10^6/uL (4.38-5.82); RED CELL DISTRIBUTION WIDTH 13.4 % (9.4-14.8)
[2020-10-02 02:15] LABS: ALANINE AMINOTRANSFERASE 35 U/L (12-78); ALBUMIN 2.7 g/dL (3.4-5.0); ANION GAP 10 mmol/L (5-15); CALCIUM 8.3 mg/dL (8.5-10.1); CHLORIDE 98 mmol/L (98-107)
[2020-10-02 02:18] LABS: ALKALINE PHOSPHATASE 136 U/L (45-117); BILIRUBIN,TOTAL 0.4 mg/dL (0.2-1.0); TOTAL PROTEIN 7.1 g/dL (6.4-8.2)
[2020-10-02 02:20] LABS: MD NO
[2020-10-02 02:25] LABS: ACETONE, SERUM Moderate(40mg/dL) (Negative)
[2020-10-02] MEDS ORDERED: INSULIN SINGLE DOSE, ER SQ-INSULIN ONE (02:30)
[2020-10-02] MEDS ORDERED: SODIUM CHLORIDE FLUSH 10ML SYR IVF ONE (02:30)
[2020-10-02] MEDS ORDERED: SODIUM CHLORIDE 0.9% 1,000ML IVBOLUS ONE ×2 (02:30→03:00)
[2020-10-02] MEDS ORDERED: INSULIN SINGLE DOSE, ER ONE (02:37)
[2020-10-02 04:04] LABS: MICROSCOPIC NOT IND
--- NOTE | 2020-10-02 04:21 | NUR ---
BG 309. Pt resting. Warm blankets given. Pt stood at bedside and used urinal indep without difficulty.
[2020-10-02 04:38] VITALS: BP 119/78
--- NOTE | 2020-10-02 04:41 | NUR ---
Patient/Caregiver given discharge instructions and they have confirmed that he understands the instructions. Patient ambulatory with steady gait. Rx reviewed with patient. Pt states he does not have money for rx refill. Resources given to patient for assistance for rx. Pt given medicaid policy number to call [facility] for ride.
== END 2020-10-02 04:46 | disposition home or self-care (01) ==
LOC: ED 02:00
DX: R10.84 Generalized abdominal pain (principal); Z76.0 Encounter for issue of repeat prescription; F15.10 Other stimulant abuse, uncomplicated; E11.65 Type 2 diabetes mellitus with hyperglycemia; J44.9 Chronic obstructive pulmonary disease, unspecified; F17.200 Nicotine dependence, unspecified, uncomplicated
CPT/HCPCS: 36415; 80053; 81003; 82010; 82803; 82962; 83690; 85025; 93005; 96360; 99284; J1815; J7030

== ENCOUNTER 2020-12-01 16:56 | Emergency (ER) | payer MEDICAID ==
[~2020-12-01] VITALS: Ht 157.5 cm; Wt 52.0 kg
[~2020-12-01 16:56] MED LIST changes: +INSU100C SQ-INSULIN; +INSU100V8 SQ; +OMEP20TA62 PO
--- NOTE | 2020-12-01 17:09 | NUR ---
PATIENT WALKED BACK FROM TRIAGE WITH CHIEF C/O "I RAN OUT OF MY INSULIN." PATIENT STATES HE RAN OUT OF INSULIN SEVERAL HOURS AGO, AND THEN STATES "I DON'T KNOW A FEW DAYS AGO." PATIENT REPORTS N/V/D INDIGESTION, AND NOT FEELING WELL. VSS, WARM BLANKET PROVIDED, CALL LIGHT WITHIN REACH.
--- NOTE | 2020-12-01 17:32 | NUR ---
ERMD AT BEDSIDE FOR EVALUATION.
--- NOTE | 2020-12-01 17:38 | NUR ---
MANAGER CENTER AT BEDSIDE.
[2020-12-01 17:50] LABS: PH, VENOUS 7.427 pH (7.320-7.420)
[2020-12-01 17:52] LABS: BASOPHILS % (AUTO) 1 % (0-1); EOSINOPHILS % (AUTO) 0 % (1-7); LYMPHOCYTES % (AUTO) 26 % (22-44); MEAN CORPUSCULAR HEMOGLOBIN 29.9 pg (27.5-34.5); MEAN CORPUSCULAR HGB CONC 34.2 g/dL (33.2-36.2); MEAN PLATELET VOLUME 7.4 fL (7.4-10.4); MONOCYTES % (AUTO) 11 % (2-9); NEUTROPHILS % (AUTO) 62 % (42-75); O2 FLOW ROOM AIR L/min; PLATELET COUNT 619 x10^3/uL (130-400); RED BLOOD COUNT 3.96 x10^6/uL (4.38-5.82); RED CELL DISTRIBUTION WIDTH 14.9 % (9.4-14.8)
[2020-12-01 17:55] LABS: MD NO
[2020-12-01 18:01] LABS: ALBUMIN 2.6 g/dL (3.4-5.0); ANION GAP 7 mmol/L (5-15); CALCIUM 8.8 mg/dL (8.5-10.1); CHLORIDE 102 mmol/L (98-107); CREATININE 0.77 mg/dL (0.7-1.3)
[2020-12-01 18:20] VITALS: BP 148/98
--- NOTE | 2020-12-01 18:53 | NUR ---
Patient given discharge instructions and they have confirmed that they understand the instructions. Patient stable and ambulatory with steady gait from ED.
== END 2020-12-01 18:54 | disposition home or self-care (01) ==
LOC: ED 18:01
DX: E11.65 Type 2 diabetes mellitus with hyperglycemia (principal); Z76.0 Encounter for issue of repeat prescription; J44.9 Chronic obstructive pulmonary disease, unspecified; F17.200 Nicotine dependence, unspecified, uncomplicated
CPT/HCPCS: 36415; 80048; 82040; 82803; 82962; 85025; 99283

== ENCOUNTER 2021-02-11 17:28 | Inpatient (IN) | payer MEDICAID ==
[~2021-02-11] VITALS: Ht 157.5 cm; Wt 57.6 kg
[~2021-02-11 17:28] MED LIST changes: -ARIP20TA10 PO; +ARIP20TA21 PO
--- NOTE | 2021-02-11 17:28 | NUR ---
JEREMIAH FROM [facility] C/O BG "HI" (NON COMPLIANT WITH INS)- RECENTLY SEEN FOR SAME, ALSO REPORTS SI ("I JUST NEED TO GO AND ")- NO SPECIFIC PLAN, PT UNCOOPERATIVE AND IRRITABLE (REFUSES TO ANSWER QUESTIONS, HAVE VS TAKEN OR CHANGE INTO GOWN- ERP AWARE), PT DEMANDING ICE CHIPS UPON ARRIVAL AND STATES "ALL THE OTHER TIMES I'VE BEEN HERE EVERYONE HAS ALWAYS DONE WHATEVER I WANTED. WHY IS IT DIFFERENT TODAY?", PT EDUCATED ON ED PROCESS WHILE A PT IS AWAITING ERP EVAL. PT YELLED AT OIL BURNER SERVICER AND INSTALLER WHILE CHANGING INTO GOWN ("WHY CAN'T ANYONE GIVEN ME ANY DAMN PRIVACY AROUND HERE"), ABLE TO PLACE PT ON MONITORS WHILE ERP IN , SITTER IN VIEW.
[2021-02-11] MEDS ORDERED: SODIUM CHLORIDE 0.9% 1,000ML IVBOLUS ONE ×2 (18:00→19:30)
[2021-02-11] MEDS ORDERED: SODIUM CHLORIDE 0.9% 1,000 ML IV ONE (18:00)
[2021-02-11 18:24] LABS: BASOPHILS % (AUTO) 1 % (0-1); EOSINOPHILS % (AUTO) 2 % (1-7); LYMPHOCYTES % (AUTO) 30 % (22-44); MEAN CORPUSCULAR HEMOGLOBIN 30.2 pg (27.5-34.5); MEAN CORPUSCULAR HGB CONC 33.4 g/dL (33.2-36.2); MEAN PLATELET VOLUME 9.4 fL (7.4-10.4); MONOCYTES % (AUTO) 7 % (2-9); NEUTROPHILS % (AUTO) 60 % (42-75); PLATELET COUNT 355 x10^3/uL (130-400); RED BLOOD COUNT 4.64 x10^6/uL (4.38-5.82); RED CELL DISTRIBUTION WIDTH 14.8 % (9.4-14.8)
[2021-02-11 18:36] LABS: ALANINE AMINOTRANSFERASE 48 U/L (12-78); ALBUMIN 3.2 g/dL (3.4-5.0); ANION GAP 20 mmol/L (5-15); CALCIUM 9.1 mg/dL (8.5-10.1); CHLORIDE 94 mmol/L (98-107); CREATININE 1.17 mg/dL (0.7-1.3)
[2021-02-11 18:38] LABS: ALKALINE PHOSPHATASE 143 U/L (45-117); BILIRUBIN,TOTAL 0.7 mg/dL (0.2-1.0); SALICYLATE LEVEL 3.1 mg/dL (2.8-20.0); TOTAL PROTEIN 7.5 g/dL (6.4-8.2)
--- NOTE | 2021-02-11 18:38 | NUR ---
PT SCREAMING "I NEED TO THROW UP!", PT REMINDED HE'S HOLDING AN EMESIS BAG, AWAITING ERP TO RETURN TO MD STATION FOR PT UPDATE.
[2021-02-11 18:42] LABS: ACETONE, SERUM Large (80mg/dL) (Negative)
--- NOTE | 2021-02-11 18:55 | NUR ---
REPORT GIVEN TO QUYEN DILLON
--- NOTE | 2021-02-11 19:04 | NUR ---
THIS RN WENT IN TO ASSESS PT. PT REFUSED ASSEMENT, REFUSED FOR THIS RN TO PUT ON CARDIAC MONITORS. STATES "I NEED A BLANKET, JUST GET ME WHAT I NEED". PT ON IV FLUIDS AND INITIAL BOLUS STILL RUNNING
[2021-02-11] MEDS ORDERED: ONDANSETRON 2MG/ML, 2ML ONE (19:13)
--- NOTE | 2021-02-11 19:15 | NUR ---
erp aware pt refusing assessment and monitors. erp states no insulin drip at this time. continue to run fluids.
--- NOTE | 2021-02-11 19:19 | NUR ---
hospitalist at bedside. pt refusing to answer his questions. pt yelling "i need a bath"
[2021-02-11] MEDS ORDERED: DEXTROSE 50%, 50ML SYRINGE IVPush PRN (19:30)
[2021-02-11] MEDS ORDERED: ONDANSETRON 2MG/ML, 2ML IVPush ONE (19:30)
[2021-02-11] MEDS ORDERED: SODIUM CHLORIDE FLUSH 10ML SYR IVF PRN (19:30)
[2021-02-11] MEDS ORDERED: DEXTROSE 4 GM TAB.CHEW PO PRN (19:30)
[2021-02-11] MEDS: D5%-0.45NACL+KCL 20MEQ 1,000 ML IV SCH (19:30)
[2021-02-11] MEDS ORDERED: GLUCAGON 1 MG IM PRN (19:30)
[2021-02-11] MEDS: HEPARIN 5,000 UNITS/ML, 1ML SQ SCH (19:30)
[2021-02-11] MEDS ORDERED: LABETALOL 5MG/ML, 20ML IVPush PRN (19:30)
--- NOTE | 2021-02-11 19:33 | NUR ---
PT MEDICATED FOR NAUSEA, PT REFUSING FOR THIS RN TO ATTEMPT A SECOND LINE. PT YELLING "JUST LEAVE ME ALONE". PT CONTINUE TO BE EDUCATED ON HEALTH STATUS AND PT CONINUES TO REFUSE CARE.
--- NOTE | 2021-02-11 20:36 | NUR ---
pt now agreeable for new iv. pt stuck 4 times without success. coninuing to attempt
[2021-02-11 20:44] LABS: MICROSCOPIC AUTO
[2021-02-11 20:54] LABS: AMPHETAMINE SCREEN, URINE Positive (Negative); BARBITURATE SCREEN, URINE Negative (Negative); BENZODIAZEPINE SCREEN, URINE Negative (Negative); CANNABINOID SCREEN, URINE Negative (Negative); COCAINE SCREEN, URINE Negative (Negative); METHADONE SCREEN, URINE Negative (Negative); OPIATE SCREEN, URINE Negative (Negative)
[2021-02-11] MEDS: SODIUM CHLORIDE FLUSH 10ML SYR IVF SCH (21:00)
--- NOTE | 2021-02-11 21:10 | NUR ---
pt has new iv, agreeable for insulin drip. bs was 481. insulin drip ordered. pt recived 2 liters ns total.
[2021-02-11] MEDS ORDERED: HYDROmorphone 2 MG/ML, 1ML ONE (21:17)
[2021-02-11] MEDS: REGULAR INSULIN 100 UNITS in SODIUM CHLORIDE 0.9% 99 ML IV PRN (21:24)
[2021-02-11] MEDS: HYDROmorphone 2 MG/ML, 1ML IVPush PRN (21:25)
[2021-02-11] MEDS: SODIUM CHLORIDE 0.9% 1,000 ML IV SCH (22:05)
[2021-02-11 22:38] LABS: CALCIUM 8.4 mg/dL (8.5-10.1); CREATININE 0.94 mg/dL (0.7-1.3)
--- NOTE | 2021-02-11 22:43 | NUR ---
REPORT TO WILMA MADRID
[2021-02-11 23:06] LABS: ANION GAP 23 mmol/L (5-15); CHLORIDE 104 mmol/L (98-107)
[2021-02-11 23:12] VITALS: BP 131/86
[2021-02-12] MEDS: FAMOTIDINE 20 MG/2 ML IVPush SCH ×2 (00:02→08:40)
[2021-02-12] MEDS: ONDANSETRON 2MG/ML, 2ML IV PRN (02:17)
[2021-02-12] MEDS: HYDROmorphone 2 MG/ML, 1ML IVPush PRN ×2 (02:18→05:42)
[2021-02-12] MEDS: D5%-0.45NACL+KCL 20MEQ 1,000 ML IV SCH ×2 (03:02→09:12)
[2021-02-12] MEDS: SODIUM CHLORIDE 0.9% 1,000 ML IV SCH (03:02)
[2021-02-12] MEDS: HEPARIN 5,000 UNITS/ML, 1ML SQ SCH ×3 (03:03→19:30)
[2021-02-12 03:15] LABS: ANION GAP 22 mmol/L (5-15); CALCIUM 8.9 mg/dL (8.5-10.1); CHLORIDE 107 mmol/L (98-107); CREATININE 1.17 mg/dL (0.7-1.3)
[2021-02-12] MEDS: REGULAR INSULIN 100 UNITS in SODIUM CHLORIDE 0.9% 99 ML IV PRN ×3 (03:41→10:27)
[2021-02-12] MEDS: LACTATED RINGERS 1,000 ML IV SCH ×3 (03:42→15:52)
[2021-02-12 07:22] LABS: CALCIUM 9.1 mg/dL (8.5-10.1)
[2021-02-12 07:23] LABS: CREATININE 1.35 mg/dL (0.7-1.3)
[2021-02-12 07:31] LABS: ANION GAP 21 mmol/L (5-15); CHLORIDE 115 mmol/L (98-107)
[2021-02-12] MEDS: SODIUM CHLORIDE FLUSH 10ML SYR IVF SCH ×2 (08:16→21:00)
[2021-02-12 10:39] LABS: ANION GAP 10 mmol/L (5-15); CALCIUM 9.2 mg/dL (8.5-10.1); CHLORIDE 121 mmol/L (98-107); CREATININE 1.41 mg/dL (0.7-1.3)
[2021-02-12 15:17] LABS: ANION GAP 10 mmol/L (5-15); CALCIUM 8.7 mg/dL (8.5-10.1); CHLORIDE 116 mmol/L (98-107); CREATININE 1.25 mg/dL (0.7-1.3)
[2021-02-12] MEDS: INSULIN GLARGINE 100 UNITS/ML, PEN SQ-INSULIN SCH (16:11)
[2021-02-12] MEDS: INSULIN LISPRO 100 UNITS/ML, PEN SQ-INSULIN SCH ×3 (16:12→22:00)
[2021-02-13] MEDS: LACTATED RINGERS 1,000 ML IV SCH (00:12)
[2021-02-13] MEDS: HEPARIN 5,000 UNITS/ML, 1ML SQ SCH ×3 (03:30→19:30)
[2021-02-13] MEDS: INSULIN GLARGINE 100 UNITS/ML, PEN SQ-INSULIN SCH ×2 (04:00→17:16)
[2021-02-13] MEDS: INSULIN LISPRO 100 UNITS/ML, PEN SQ-INSULIN SCH ×4 (04:00→21:12)
[2021-02-13] MEDS: SODIUM CHLORIDE FLUSH 10ML SYR IVF SCH ×2 (09:00→21:00)
[2021-02-13] MEDS ORDERED: FAMOTIDINE 20 MG/2 ML IVPush SCH (09:00)
[2021-02-13 10:52] VITALS: BP 149/94
[2021-02-13] MEDS ORDERED: TAMSULOSIN 0.4 MG CAP.ER.24H ONE (12:08)
[2021-02-13] MEDS: TAMSULOSIN 0.4 MG CAP.ER.24H PO SCH (12:10)
[2021-02-13 15:53] LABS: ANION GAP 7 mmol/L (5-15); CALCIUM 8.5 mg/dL (8.5-10.1); CHLORIDE 102 mmol/L (98-107); CREATININE 0.75 mg/dL (0.7-1.3)
[2021-02-13] MEDS ORDERED: POTASSIUM CHLORIDE 20 MEQ TAB.ER.PRT PO ONE (16:30)
[2021-02-13] MEDS ORDERED: OMEPRAZOLE 20 MG CAPSULE.DR ONE (17:29)
[2021-02-13] MEDS: OMEPRAZOLE 20 MG CAPSULE.DR PO SCH (17:34)
[2021-02-13 19:40] VITALS: BP 137/88
[2021-02-13] MEDS: ACETAMINOPHEN 325 MG TABLET PO PRN (21:52)
[2021-02-14 00:44] VITALS: BP 147/84
[2021-02-14] MEDS: HEPARIN 5,000 UNITS/ML, 1ML SQ SCH ×3 (03:30→19:30)
[2021-02-14] MEDS: INSULIN GLARGINE 100 UNITS/ML, PEN SQ-INSULIN SCH (04:00)
[2021-02-14] MEDS: INSULIN LISPRO 100 UNITS/ML, PEN SQ-INSULIN SCH ×6 (04:00→20:11)
[2021-02-14] MEDS: OMEPRAZOLE 20 MG CAPSULE.DR PO SCH ×3 (06:00→16:17)
[2021-02-14 07:25] LABS: ANION GAP 6 mmol/L (5-15); CALCIUM 8.8 mg/dL (8.5-10.1); CHLORIDE 99 mmol/L (98-107)
[2021-02-14 07:27] LABS: BASOPHILS % (AUTO) 2 % (0-1); EOSINOPHILS % (AUTO) 0 % (1-7); LYMPHOCYTES % (AUTO) 28 % (22-44); MEAN CORPUSCULAR HEMOGLOBIN 30.1 pg (27.5-34.5); MEAN CORPUSCULAR HGB CONC 34.5 g/dL (33.2-36.2); MEAN PLATELET VOLUME 8.9 fL (7.4-10.4); MONOCYTES % (AUTO) 7 % (2-9); NEUTROPHILS % (AUTO) 62 % (42-75); PLATELET COUNT 361 x10^3/uL (130-400); RED BLOOD COUNT 4.47 x10^6/uL (4.38-5.82); RED CELL DISTRIBUTION WIDTH 14.6 % (9.4-14.8)
[2021-02-14 08:04] VITALS: BP 117/79
[2021-02-14] MEDS: TAMSULOSIN 0.4 MG CAP.ER.24H PO SCH (08:07)
[2021-02-14] MEDS ORDERED: INSULIN GLARGINE 100 UNITS/ML, PEN SQ-INSULIN SCH ×2 (09:30→21:30)
[2021-02-14] MEDS: SODIUM CHLORIDE FLUSH 10ML SYR IVF SCH ×2 (09:47→20:39)
[2021-02-14] MEDS: ACETAMINOPHEN 325 MG TABLET PO PRN ×2 (12:14→20:08)
[2021-02-14 12:22] VITALS: BP 112/75
[2021-02-14 20:11] VITALS: BP 115/79
[2021-02-14] MEDS: POLYETHYLENE GLYCOL 17 GM PACKET PO PRN (20:38)
[2021-02-15 02:35] VITALS: BP 121/75
[2021-02-15] MEDS: HEPARIN 5,000 UNITS/ML, 1ML SQ SCH ×3 (03:30→19:30)
[2021-02-15 06:04] LABS: CALCIUM 8.7 mg/dL (8.5-10.1); CHLORIDE 101 mmol/L (98-107)
[2021-02-15 06:14] LABS: ANION GAP 4 mmol/L (5-15)
[2021-02-15 07:24] VITALS: BP 128/87
[2021-02-15] MEDS: INSULIN LISPRO 100 UNITS/ML, PEN SQ-INSULIN SCH ×7 (08:16→20:41)
[2021-02-15] MEDS: OMEPRAZOLE 20 MG CAPSULE.DR PO SCH ×2 (08:17→16:23)
[2021-02-15] MEDS: TAMSULOSIN 0.4 MG CAP.ER.24H PO SCH (08:17)
[2021-02-15] MEDS: SERTRALINE 50MG TABLET PO SCH (08:19)
[2021-02-15] MEDS: SODIUM CHLORIDE FLUSH 10ML SYR IVF SCH ×2 (08:19→20:42)
[2021-02-15] MEDS ORDERED: INSULIN GLARGINE 100 UNITS/ML, PEN SQ-INSULIN SCH (09:30)
[2021-02-15] MEDS: ACETAMINOPHEN 325 MG TABLET PO PRN (11:21)
[2021-02-15] MEDS: POLYETHYLENE GLYCOL 17 GM PACKET PO PRN (11:21)
[2021-02-15 13:35] VITALS: BP 114/72
[2021-02-15 20:39] VITALS: BP 107/73
[2021-02-16] MEDS: HEPARIN 5,000 UNITS/ML, 1ML SQ SCH ×3 (02:32→19:30)
[2021-02-16] MEDS: ONDANSETRON 2MG/ML, 2ML IV PRN (06:11)
[2021-02-16] MEDS: INSULIN LISPRO 100 UNITS/ML, PEN SQ-INSULIN SCH ×7 (06:23→21:18)
[2021-02-16] MEDS: SODIUM CHLORIDE FLUSH 10ML SYR IVF SCH ×2 (08:03→21:16)
[2021-02-16] MEDS: OMEPRAZOLE 20 MG CAPSULE.DR PO SCH ×2 (08:03→16:43)
[2021-02-16] MEDS: TAMSULOSIN 0.4 MG CAP.ER.24H PO SCH (08:03)
[2021-02-16] MEDS: SERTRALINE 50MG TABLET PO SCH (08:03)
[2021-02-16 08:07] VITALS: BP 132/92
[2021-02-16] MEDS ORDERED: INSULIN GLARGINE 100 UNITS/ML, PEN SQ-INSULIN SCH ×2 (09:00)
[2021-02-16 12:35] VITALS: BP 128/82
[2021-02-16 14:48] VITALS: BP 118/85
[2021-02-16 20:22] VITALS: BP 148/87
[2021-02-16] MEDS: INSULIN GLARGINE 100 UNITS/ML, PEN SQ-INSULIN SCH (21:17)
[2021-02-17] MEDS: ACETAMINOPHEN 325 MG TABLET PO PRN ×2 (03:01→22:08)
[2021-02-17] MEDS: HEPARIN 5,000 UNITS/ML, 1ML SQ SCH ×3 (03:30→19:30)
[2021-02-17] MEDS: INSULIN LISPRO 100 UNITS/ML, PEN SQ-INSULIN SCH ×7 (06:40→21:55)
[2021-02-17] MEDS: OMEPRAZOLE 20 MG CAPSULE.DR PO SCH ×2 (07:40→15:56)
[2021-02-17 07:56] VITALS: BP 105/89
[2021-02-17] MEDS: SODIUM CHLORIDE FLUSH 10ML SYR IVF SCH ×2 (08:55→21:54)
[2021-02-17] MEDS: SERTRALINE 50MG TABLET PO SCH (08:55)
[2021-02-17] MEDS: INSULIN GLARGINE 100 UNITS/ML, PEN SQ-INSULIN SCH ×2 (08:55→21:55)
[2021-02-17] MEDS: TAMSULOSIN 0.4 MG CAP.ER.24H PO SCH (08:55)
[2021-02-17 12:30] VITALS: BP 112/79
[2021-02-18 00:10] VITALS: BP 143/90
[2021-02-18] MEDS: HEPARIN 5,000 UNITS/ML, 1ML SQ SCH ×3 (03:27→19:08)
[2021-02-18 06:19] VITALS: BP 142/89
[2021-02-18] MEDS: METOPROLOL TARTRATE 25 MG TAB PO SCH ×2 (06:22→18:17)
[2021-02-18] MEDS: INSULIN LISPRO 100 UNITS/ML, PEN SQ-INSULIN SCH ×7 (07:55→21:00)
[2021-02-18] MEDS: SODIUM CHLORIDE FLUSH 10ML SYR IVF SCH ×2 (07:56→21:10)
[2021-02-18] MEDS: FLUOXETINE 10 MG CAP PO SCH (07:56)
[2021-02-18] MEDS: TAMSULOSIN 0.4 MG CAP.ER.24H PO SCH (07:56)
[2021-02-18] MEDS: INSULIN GLARGINE 100 UNITS/ML, PEN SQ-INSULIN SCH (07:56)
[2021-02-18] MEDS: OMEPRAZOLE 20 MG CAPSULE.DR PO SCH ×2 (07:56→16:48)
[2021-02-18 14:37] VITALS: BP 116/75
[2021-02-18 20:24] VITALS: BP 116/78
[2021-02-18] MEDS ORDERED: INSULIN GLARGINE 100 UNITS/ML, PEN SQ-INSULIN SCH (21:00)
[2021-02-18] MEDS: ACETAMINOPHEN 325 MG TABLET PO PRN (21:11)
[2021-02-19 02:02] VITALS: BP 113/78
[2021-02-19] MEDS: HEPARIN 5,000 UNITS/ML, 1ML SQ SCH ×3 (03:21→19:30)
[2021-02-19] MEDS: METOPROLOL TARTRATE 25 MG TAB PO SCH ×2 (05:23→18:29)
[2021-02-19 07:19] VITALS: BP 127/78
[2021-02-19] MEDS: INSULIN LISPRO 100 UNITS/ML, PEN SQ-INSULIN SCH ×7 (07:43→19:57)
[2021-02-19] MEDS: TAMSULOSIN 0.4 MG CAP.ER.24H PO SCH (07:44)
[2021-02-19] MEDS: SODIUM CHLORIDE FLUSH 10ML SYR IVF SCH ×2 (07:44→19:55)
[2021-02-19] MEDS: OMEPRAZOLE 20 MG CAPSULE.DR PO SCH ×2 (07:44→16:34)
[2021-02-19] MEDS: FLUOXETINE 10 MG CAP PO SCH (07:44)
[2021-02-19] MEDS ORDERED: INSULIN GLARGINE 100 UNITS/ML, PEN SQ-INSULIN SCH (09:00)
[2021-02-19] MEDS: ACETAMINOPHEN 325 MG TABLET PO PRN ×2 (10:25→19:55)
[2021-02-19 12:42] VITALS: BP 106/73
[2021-02-19 15:22] LABS: MICROSCOPIC AUTO
[2021-02-19 18:28] VITALS: BP 107/68
[2021-02-19 19:39] VITALS: BP 113/74
[2021-02-19] MEDS: INSULIN GLARGINE 100 UNITS/ML, PEN SQ-INSULIN SCH (19:58)
[2021-02-20] MEDS: HEPARIN 5,000 UNITS/ML, 1ML SQ SCH ×3 (03:11→19:30)
[2021-02-20 04:58] VITALS: BP 133/86
[2021-02-20] MEDS: METOPROLOL TARTRATE 25 MG TAB PO SCH ×2 (05:01→17:09)
[2021-02-20] MEDS: INSULIN LISPRO 100 UNITS/ML, PEN SQ-INSULIN SCH ×6 (07:21→20:41)
[2021-02-20 07:23] VITALS: BP 112/77
[2021-02-20] MEDS: TAMSULOSIN 0.4 MG CAP.ER.24H PO SCH (09:23)
[2021-02-20] MEDS: FLUOXETINE 10 MG CAP PO SCH (09:23)
[2021-02-20] MEDS: OMEPRAZOLE 20 MG CAPSULE.DR PO SCH ×2 (09:23→16:29)
[2021-02-20] MEDS: INSULIN GLARGINE 100 UNITS/ML, PEN SQ-INSULIN SCH ×2 (09:23→20:40)
[2021-02-20] MEDS: SODIUM CHLORIDE FLUSH 10ML SYR IVF SCH ×2 (09:24→20:52)
[2021-02-20 09:35] LABS: ANION GAP 7 mmol/L (5-15); CALCIUM 8.5 mg/dL (8.5-10.1); CHLORIDE 103 mmol/L (98-107); CREATININE 0.71 mg/dL (0.7-1.3)
[2021-02-20 09:50] LABS: BASOPHILS % (AUTO) 0 % (0-1); EOSINOPHILS % (AUTO) 2 % (1-7); LYMPHOCYTES % (AUTO) 21 % (22-44); MEAN CORPUSCULAR HEMOGLOBIN 30.4 pg (27.5-34.5); MEAN CORPUSCULAR HGB CONC 34.5 g/dL (33.2-36.2); MEAN PLATELET VOLUME 8.6 fL (7.4-10.4); MONOCYTES % (AUTO) 7 % (2-9); NEUTROPHILS % (AUTO) 70 % (42-75); PLATELET COUNT 416 x10^3/uL (130-400); RED BLOOD COUNT 4.05 x10^6/uL (4.38-5.82); RED CELL DISTRIBUTION WIDTH 14.9 % (9.4-14.8)
[2021-02-20 20:43] VITALS: BP 147/86
[2021-02-20] MEDS: ACETAMINOPHEN 325 MG TABLET PO PRN (20:46)
[2021-02-20 21:45] LABS: CALCIUM 8.3 mg/dL (8.5-10.1); CREATININE 1.28 mg/dL (0.7-1.3)
[2021-02-20 21:58] LABS: CHLORIDE 90 mmol/L (98-107)
[2021-02-20 22:02] LABS: ANION GAP 14 mmol/L (5-15)
[2021-02-20] MEDS: SODIUM CHLORIDE 0.9% 1,000 ML IV SCH (22:29)
[2021-02-21] MEDS: HEPARIN 5,000 UNITS/ML, 1ML SQ SCH ×3 (03:30→19:30)
[2021-02-21] MEDS: SODIUM CHLORIDE 0.9% 1,000 ML IV SCH ×2 (03:30→23:24)
[2021-02-21 05:12] VITALS: BP 109/72
[2021-02-21] MEDS: METOPROLOL TARTRATE 25 MG TAB PO SCH ×2 (05:14→18:37)
[2021-02-21] MEDS: ACETAMINOPHEN 325 MG TABLET PO PRN ×3 (06:40→23:24)
[2021-02-21] MEDS ORDERED: INSULIN LISPRO 100 UNITS/ML, PEN SQ-INSULIN SCH (07:00)
[2021-02-21] MEDS: OMEPRAZOLE 20 MG CAPSULE.DR PO SCH ×2 (07:51→16:38)
[2021-02-21] MEDS: INSULIN LISPRO 100 UNITS/ML, PEN SQ-INSULIN SCH ×6 (07:51→20:42)
[2021-02-21] MEDS: SODIUM CHLORIDE FLUSH 10ML SYR IVF SCH ×2 (08:19→20:39)
[2021-02-21] MEDS: TAMSULOSIN 0.4 MG CAP.ER.24H PO SCH (08:19)
[2021-02-21] MEDS: FLUOXETINE 10 MG CAP PO SCH (08:19)
[2021-02-21 09:49] LABS: CALCIUM 8.7 mg/dL (8.5-10.1)
[2021-02-21 09:51] LABS: CREATININE 0.81 mg/dL (0.7-1.3)
[2021-02-21 10:06] LABS: ANION GAP 10 mmol/L (5-15); CHLORIDE 97 mmol/L (98-107)
[2021-02-21] MEDS: INSULIN GLARGINE 100 UNITS/ML, PEN SQ-INSULIN SCH ×2 (11:00→20:37)
[2021-02-21 14:22] VITALS: BP 107/69
[2021-02-21 21:51] LABS: CHLORIDE 89 mmol/L (98-107); CREATININE 1.26 mg/dL (0.7-1.3)
[2021-02-21 22:25] LABS: ANION GAP 12 mmol/L (5-15)
[2021-02-21] MEDS ORDERED: SODIUM CHLORIDE 0.9% 1,000 ML IV SCH (22:30)
[2021-02-21 22:49] LABS: ACETONE, SERUM Trace (Negative)
[2021-02-22 01:32] VITALS: BP 109/67
[2021-02-22] MEDS: HEPARIN 5,000 UNITS/ML, 1ML SQ SCH ×3 (03:30→19:30)
[2021-02-22] MEDS: METOPROLOL TARTRATE 25 MG TAB PO SCH ×2 (05:02→18:12)
[2021-02-22] MEDS: SODIUM CHLORIDE 0.9% 1,000 ML IV SCH ×3 (06:01→21:05)
[2021-02-22 07:32] VITALS: BP 99/64
[2021-02-22] MEDS: OMEPRAZOLE 20 MG CAPSULE.DR PO SCH ×2 (07:45→16:14)
[2021-02-22] MEDS: SODIUM CHLORIDE FLUSH 10ML SYR IVF SCH ×2 (07:45→20:16)
[2021-02-22] MEDS: TAMSULOSIN 0.4 MG CAP.ER.24H PO SCH (07:45)
[2021-02-22] MEDS: FLUOXETINE 10 MG CAP PO SCH (07:45)
[2021-02-22] MEDS: INSULIN GLARGINE 100 UNITS/ML, PEN SQ-INSULIN SCH ×2 (07:50→20:13)
[2021-02-22 10:00] LABS: CALCIUM 7.8 mg/dL (8.5-10.1); CREATININE 0.76 mg/dL (0.7-1.3)
[2021-02-22 10:02] LABS: ANION GAP 7 mmol/L (5-15); CHLORIDE 102 mmol/L (98-107)
[2021-02-22] MEDS: INSULIN LISPRO 100 UNITS/ML, PEN SQ-INSULIN SCH ×4 (11:39→20:14)
[2021-02-22 15:30] VITALS: BP 104/60
[2021-02-22] MEDS: ACETAMINOPHEN 325 MG TABLET PO PRN ×2 (15:39→21:04)
[2021-02-22 17:25] VITALS: BP 114/70
[2021-02-22 18:21] VITALS: BP 112/71
[2021-02-23 00:38] VITALS: BP 104/63
[2021-02-23] MEDS: HEPARIN 5,000 UNITS/ML, 1ML SQ SCH ×3 (03:30→19:30)
[2021-02-23] MEDS: SODIUM CHLORIDE 0.9% 1,000 ML IV SCH ×4 (03:37→23:16)
[2021-02-23] MEDS: METOPROLOL TARTRATE 25 MG TAB PO SCH ×2 (05:05→17:42)
[2021-02-23 06:09] LABS: ANION GAP 4 mmol/L (5-15); CALCIUM 7.8 mg/dL (8.5-10.1); CHLORIDE 108 mmol/L (98-107); CREATININE 0.59 mg/dL (0.7-1.3)
[2021-02-23 07:07] VITALS: BP 116/72
[2021-02-23] MEDS: OMEPRAZOLE 20 MG CAPSULE.DR PO SCH ×2 (08:05→16:43)
[2021-02-23] MEDS: TAMSULOSIN 0.4 MG CAP.ER.24H PO SCH (08:05)
[2021-02-23] MEDS: FLUOXETINE 10 MG CAP PO SCH (08:05)
[2021-02-23] MEDS: SODIUM CHLORIDE FLUSH 10ML SYR IVF SCH ×2 (08:06→20:23)
[2021-02-23] MEDS: INSULIN GLARGINE 100 UNITS/ML, PEN SQ-INSULIN SCH ×2 (08:06→20:22)
[2021-02-23] MEDS: INSULIN LISPRO 100 UNITS/ML, PEN SQ-INSULIN SCH ×3 (10:28→20:23)
[2021-02-23 12:32] VITALS: BP 116/72
[2021-02-23 17:41] VITALS: BP 112/70
[2021-02-23] MEDS: ACETAMINOPHEN 325 MG TABLET PO PRN (17:42)
[2021-02-23 18:59] VITALS: BP 128/79
[2021-02-24 00:06] VITALS: BP 107/67
[2021-02-24] MEDS: HEPARIN 5,000 UNITS/ML, 1ML SQ SCH ×3 (03:30→19:26)
[2021-02-24] MEDS: METOPROLOL TARTRATE 25 MG TAB PO SCH ×2 (05:41→17:17)
[2021-02-24] MEDS: SODIUM CHLORIDE 0.9% 1,000 ML IV SCH (05:41)
[2021-02-24] MEDS: INSULIN LISPRO 100 UNITS/ML, PEN SQ-INSULIN SCH ×4 (07:00→20:16)
[2021-02-24] MEDS: TAMSULOSIN 0.4 MG CAP.ER.24H PO SCH (07:42)
[2021-02-24] MEDS: ACETAMINOPHEN 325 MG TABLET PO PRN (07:42)
[2021-02-24] MEDS: OMEPRAZOLE 20 MG CAPSULE.DR PO SCH ×2 (07:42→16:06)
[2021-02-24] MEDS: SODIUM CHLORIDE FLUSH 10ML SYR IVF SCH ×2 (07:42→20:16)
[2021-02-24] MEDS: FLUOXETINE 10 MG CAP PO SCH (07:42)
[2021-02-24] MEDS: INSULIN GLARGINE 100 UNITS/ML, PEN SQ-INSULIN SCH ×2 (07:43→20:16)
[2021-02-24 07:51] VITALS: BP 125/79
[2021-02-24 12:58] VITALS: BP 109/75
[2021-02-24 17:15] VITALS: BP 149/79
[2021-02-24 20:06] VITALS: BP 149/79
[2021-02-24 20:50] LABS: ANION GAP 9 mmol/L (5-15); CALCIUM 8.9 mg/dL (8.5-10.1); CHLORIDE 100 mmol/L (98-107); CREATININE 0.92 mg/dL (0.7-1.3)
[2021-02-25] MEDS: HEPARIN 5,000 UNITS/ML, 1ML SQ SCH ×3 (02:56→19:28)
[2021-02-25] MEDS: METOPROLOL TARTRATE 25 MG TAB PO SCH ×2 (05:09→17:11)
[2021-02-25] MEDS: INSULIN LISPRO 100 UNITS/ML, PEN SQ-INSULIN SCH ×4 (08:17→20:04)
[2021-02-25] MEDS: ACETAMINOPHEN 325 MG TABLET PO PRN (08:18)
[2021-02-25] MEDS: FLUOXETINE 10 MG CAP PO SCH (08:19)
[2021-02-25] MEDS: TAMSULOSIN 0.4 MG CAP.ER.24H PO SCH (08:19)
[2021-02-25] MEDS: SODIUM CHLORIDE FLUSH 10ML SYR IVF SCH ×2 (08:20→20:10)
[2021-02-25] MEDS: OMEPRAZOLE 20 MG CAPSULE.DR PO SCH ×2 (08:28→17:11)
[2021-02-25] MEDS ORDERED: INSULIN GLARGINE 100 UNITS/ML, PEN SQ-INSULIN SCH (09:00)
[2021-02-25 20:00] VITALS: BP 98/64
[2021-02-25] MEDS: INSULIN GLARGINE 100 UNITS/ML, PEN SQ-INSULIN SCH (20:10)
[2021-02-26] MEDS: HEPARIN 5,000 UNITS/ML, 1ML SQ SCH ×2 (03:30→10:53)
[2021-02-26] MEDS: METOPROLOL TARTRATE 25 MG TAB PO SCH (06:00)
[2021-02-26] MEDS ORDERED: METO25TA35 PO ×3 (06:24→11:12)
[2021-02-26] MEDS ORDERED: BLOO-1340 SC ×3 (06:24→11:12)
[2021-02-26] MEDS ORDERED: FLUO10CA15 PO ×3 (06:24→11:12)
[2021-02-26] MEDS ORDERED: INSU100I13 SQ-INSULIN ×3 (06:24→11:12)
[2021-02-26] MEDS ORDERED: INSU100C SQ-INSULIN ×3 (06:24→11:12)
[2021-02-26] MEDS ORDERED: TAMS-11 PO ×3 (06:24→11:12)
[2021-02-26] MEDS ORDERED: METF850T10 PO ×2 (07:01)
[2021-02-26] MEDS: FLUOXETINE 10 MG CAP PO SCH (07:49)
[2021-02-26] MEDS: TAMSULOSIN 0.4 MG CAP.ER.24H PO SCH (07:49)
[2021-02-26] MEDS: OMEPRAZOLE 20 MG CAPSULE.DR PO SCH (07:49)
[2021-02-26] MEDS: SODIUM CHLORIDE FLUSH 10ML SYR IVF SCH (07:50)
[2021-02-26] MEDS: INSULIN LISPRO 100 UNITS/ML, PEN SQ-INSULIN SCH ×2 (07:50→10:53)
[2021-02-26] MEDS ORDERED: INSULIN GLARGINE 100 UNITS/ML, PEN SQ-INSULIN SCH (09:00)
[2021-02-26 10:04] VITALS: BP 98/65
== END 2021-02-26 12:36 | disposition home or self-care (01) | DRG 638 ==
LOC: ED 17:43 → EDIP 19:01 → CCU 22:58 → 4NE 02-12 17:57 → 3N 02-17 20:07
PROVIDERS: ADMIT Internal Medicine; ATTEND Internal Medicine
DX: E10.10 Type 1 diabetes mellitus with ketoacidosis without coma (principal); N13.30 Unspecified hydronephrosis; R45.851 Suicidal ideations; F33.2 Major depressive disorder, recurrent severe without psychotic features; J44.9 Chronic obstructive pulmonary disease, unspecified; Z59.0 Homelessness; Z91.14 Patient's other noncompliance with medication regimen; Z86.39 Personal history of other endocrine, nutritional and metabolic disease; N32.0 Bladder-neck obstruction; K21.9 Gastro-esophageal reflux disease without esophagitis; F15.10 Other stimulant abuse, uncomplicated; F17.210 Nicotine dependence, cigarettes, uncomplicated; F41.9 Anxiety disorder, unspecified; I10 Essential (primary) hypertension; K80.20 Calculus of gallbladder without cholecystitis without obstruction; Z91.83 Wandering in diseases classified elsewhere; Z88.8 Allergy status to other drugs, medicaments and biological substances; E86.1 Hypovolemia
CPT/HCPCS: 36415; 76700; 80048; 80053; 80299; 80307; 80320; 80329; 81001; 82010; 82803; 82947; 82962; 83036; 83690; 83735; 84100; 85025; 87081; 87147; 96361; 96374; G0378; J1170; J1644; J1815; J2405; G0480; J3480; J7030; J7120

== ENCOUNTER 2021-03-09 18:00 | Emergency (ER) | payer MEDICAID ==
[~2021-03-09] VITALS: Ht 157.5 cm; Wt 50.0 kg
[~2021-03-09 18:00] MED LIST changes: +BLOO-1340 SC; +FLUO10CA15 PO; +METF850T10 PO; +METO25TA35 PO; +TAMS-11 PO
--- NOTE | 2021-03-09 18:17 | NUR ---
ASSUMED CARE OF PATIENT. PATIENT JEANA LIZARRAGA, PT HAS NOT BEEN TAKING HIS INSULIN X2 DAYS. PT RESP 28. FSBS READ "HIGH" FOR EMS. AUTOMATION ENGINEERING MANAGER ON. SINUS TACH NOTED. EKG DONE. CALL LIGHT IN PLACE. WILL CONTINUE TO MONITOR.
[2021-03-09] MEDS ORDERED: SODIUM CHLORIDE 0.9% 1,000ML IVBOLUS ONE (19:00)
--- NOTE | 2021-03-09 19:06 | NUR ---
PT EATING IN ROOM FROM BACKPACK. DR SMITH AWARE.
[2021-03-09 19:12] LABS: O2 FLOW ROOM AIR L/min; PH, VENOUS 7.354 pH (7.320-7.420)
[2021-03-09 19:13] LABS: BASOPHILS % (AUTO) 0 % (0-1); EOSINOPHILS % (AUTO) 1 % (1-7); LYMPHOCYTES % (AUTO) 26 % (22-44); MEAN CORPUSCULAR HEMOGLOBIN 29.6 pg (27.5-34.5); MEAN CORPUSCULAR HGB CONC 33.2 g/dL (33.2-36.2); MEAN PLATELET VOLUME 8.7 fL (7.4-10.4); MONOCYTES % (AUTO) 10 % (2-9); NEUTROPHILS % (AUTO) 63 % (42-75); PLATELET COUNT 494 x10^3/uL (130-400); RED BLOOD COUNT 4.05 x10^6/uL (4.38-5.82); RED CELL DISTRIBUTION WIDTH 14.6 % (9.4-14.8)
--- NOTE | 2021-03-09 19:15 | NUR ---
REPORT GIVEN TO WILMA RIBERA
[2021-03-09 19:27] LABS: ALBUMIN 2.9 g/dL (3.4-5.0); ANION GAP 14 mmol/L (5-15); CALCIUM 8.8 mg/dL (8.5-10.1); CHLORIDE 90 mmol/L (98-107)
[2021-03-09 19:31] LABS: ALANINE AMINOTRANSFERASE 38 U/L (12-78); ALKALINE PHOSPHATASE 148 U/L (45-117); BILIRUBIN,TOTAL 0.7 mg/dL (0.2-1.0); CREATININE 1.02 mg/dL (0.7-1.3); TOTAL PROTEIN 7.4 g/dL (6.4-8.2)
[2021-03-09 19:42] LABS: ACETONE, SERUM Moderate(40mg/dL) (Negative)
[2021-03-09] MEDS ORDERED: POTASSIUM CHLORIDE 20 MEQ TAB.ER.PRT ONE (19:46)
[2021-03-09] MEDS ORDERED: INSULIN SINGLE DOSE, ER ONE (19:47)
[2021-03-09 19:54] LABS: MICROSCOPIC AUTO
[2021-03-09] MEDS ORDERED: POTASSIUM CHLORIDE 20 MEQ TAB.ER.PRT PO ONE (20:00)
[2021-03-09] MEDS ORDERED: INSULIN REGULAR 100 UNITS/ML, 3ML VIAL IVPush ONE (20:00)
[2021-03-09] MEDS ORDERED: LACTATED RINGERS 1,000 ML IVBOLUS ONE (20:00)
--- NOTE | 2021-03-09 20:23 | NUR ---
PT EATING SUGAR FROM HIS BACKPACK. PT NOT COOPERATIVE. DR SMITH HAS UPDATED PATIENT.
--- NOTE | 2021-03-09 20:40 | NUR ---
PT TO BE DISCHARGED
--- NOTE | 2021-03-09 21:10 | NUR ---
PT GETTING SELF DRESSED. PT IS A&O X4. VS STABLE. PT READY FOR DC.
--- NOTE | 2021-03-09 21:53 | NUR ---
PT GOT SELF DRESSED, PT CAN AMBULATE AROUND ROOM AND GRANADOS CARRING BELONGINGS. PT IS A&O X4. PT REQUESTING TAXI TO THE [facility]. VOUCHER GIVEN. PT DISCHARGED PER DR SMITH.
[2021-03-09 21:54] VITALS: BP 127/80
== END 2021-03-09 21:57 | disposition home or self-care (01) ==
LOC: ED 21:10
DX: E11.65 Type 2 diabetes mellitus with hyperglycemia (principal); Z72.9 Problem related to lifestyle, unspecified; R41.82 Altered mental status, unspecified; J44.9 Chronic obstructive pulmonary disease, unspecified
CPT/HCPCS: 36415; 80053; 81001; 82010; 82803; 82962; 83930; 85025; 93005; 96361; 96374; 99284; J1815; J7030; J7120

== ENCOUNTER 2021-04-12 21:50 | Emergency (ER) | payer MEDICAID ==
[2021-04-13 01:53] VITALS: BP 121/80
== END 2021-04-13 03:29 | disposition home or self-care (01) ==
LOC: EDBD → MERGE 21:50 → UNMERGE 21:50 → ED 23:59
DX: G40.409 Other generalized epilepsy and epileptic syndromes, not intractable, without status epilepticus (principal); E11.65 Type 2 diabetes mellitus with hyperglycemia; F15.10 Other stimulant abuse, uncomplicated; F11.10 Opioid abuse, uncomplicated; F10.10 Alcohol abuse, uncomplicated; G92 Toxic encephalopathy; F17.200 Nicotine dependence, unspecified, uncomplicated; Y90.0 Blood alcohol level of less than 20 mg/100 ml

== ENCOUNTER 2021-04-13 06:45 | Emergency (ER) | payer MEDICAID ==
[~2021-04-13] VITALS: Ht 162.6 cm; Wt 39.6 kg
[2021-04-13 21:36] VITALS: BP 116/81
== END 2021-04-13 21:39 | disposition home or self-care (01) ==
LOC: ED 07:34
DX: R41.82 Altered mental status, unspecified (principal); G92 Toxic encephalopathy; F19.159 Other psychoactive substance abuse with psychoactive substance-induced psychotic disorder, unspecified; R51.9 Headache, unspecified; E11.65 Type 2 diabetes mellitus with hyperglycemia; J44.9 Chronic obstructive pulmonary disease, unspecified; R00.0 Tachycardia, unspecified
CPT/HCPCS: 36415; 70450; 80053; 80320; 82010; 82800; 82962; 85025; 93005; 96360; 99285; J1815; J7030